=== PATIENT | female | born 1935 | race Caucasian/White ===

== ENCOUNTER 2016-05-14 18:38 | Emergency (ER) | payer MEDICARE, OTHER ==
[~2016-05-14] VITALS: Ht 160 cm; Wt 83.6 kg
[~2016-05-14 18:38] MED LIST: ADLT ASA LOW81 MG PO; ATENOLOL50 MG PO; B-121000 MC1 PO; CALTRATE 600 PO; CO Q 1030 MG PO; ENDUR-ACIN500 MG PO; GLUCOSAMINE500 M1 PO; LASIX40 MG PO; LEVOTHYROXIN100 MC1 PO; LIPITOR20 MG PO; MSM1000 MG PO; NADOLOL20 MG PO; SINEMET 25/1001 TA1 PO
[2016-05-14 20:26] LABS: HEMATOCRIT 36.9 % (37.0-47.0); HEMOGLOBIN 12.6 g/dl (12.0-16.0); IMMATURE GRANULOCYTES 0.5 % (0.0-1.0); MEAN CELL VOLUME 96.3 fL CALC (80.0-100.0); MEAN CORPUSCULAR HGB 32.9 pG CALC (26.0-32.0); MEAN CORPUSCULAR HGB CONC 34.1 g/L CALC (32.0-36.0); NEUT# 2.4 thou/uL (2.00-7.15); RED BLOOD COUNT 3.83 mill/uL (4.20-5.60); RED CELL DISTRI WIDTH 12.6 % (11.5-15.5)
[2016-05-14 20:37] LABS: ACT PARTIAL THROMBO TIME 30.8 SECONDS (20.0-32.5); PROTHROMBIN TIME 10.4 SECONDS (9.0-12.5)
[2016-05-14 20:38] LABS: ALBUMIN 3.8 g/dL (3.2-5.0); ALKALINE PHOSPHATASE 94 u/l (38-126); ANION GAP 15 (6-22 (CALC)); BILIRUBIN, TOTAL 0.4 mg/dL (0.0-1.4); BUN 24 mg/dL (8-23); BUN/CREATININE RATIO 23 (12-20 (CALC)); CALCIUM 9.2 mg/dL (8.4-10.2); CARBON DIOXIDE 29 mmol/l (22-30); CHLORIDE 104 mmol/l (95-108); GFR 54 ML/MIN (>=60 (CALC)); GFR FOR AFR.AMER. > 60 ML/MIN (>=60 (CALC)); GLUCOSE 107 mg/dL (82-115); POTASSIUM 3.9 mmol/l (3.5-5.1); SGOT/AST 21 u/l (9-36); SGPT/ALT 17 u/l (11-66); SODIUM 143 mmol/l (137-146); TOTAL PROTEIN 6.9 g/dL (6.3-8.2)
[2016-05-14 20:40] LABS: INFLUENZA A NONE DETECTED (NONE DETECT); INFLUENZA B NONE DETECTED (NONE DETECT)
[2016-05-14] MEDS ORDERED: COLACE100 MG PO (20:51)
[2016-05-14] MEDS ORDERED: B121000 MCG PO (20:52)
[2016-05-14] MEDS ORDERED: TURMERIC CURCU500 MG PO (20:53)
[2016-05-15] MEDS ORDERED: CODEINE/GUAIFEN1 SOL PO (00:32)
[2016-05-15] MEDS ORDERED: CIPROFLOXACN500 MG PO (00:32)
[2016-05-15 00:55] VITALS: BP 146/84
== END 2016-05-15 00:55 | disposition home or self-care (01) ==
LOC: ED 18:38
PROVIDERS: Emergency Medicine
DX: J20.9 Acute bronchitis, unspecified (principal); I10 Essential (primary) hypertension; E05.90 Thyrotoxicosis, unspecified without thyrotoxic crisis or storm; G20 Parkinson's disease; M19.90 Unspecified osteoarthritis, unspecified site; R04.0 Epistaxis

== ENCOUNTER 2017-01-08 22:06 | Inpatient (IN) | payer MEDICARE, OTHER ==
[~2017-01-08] VITALS: Ht 160 cm; Wt 85.3 kg
[~2017-01-08 22:06] MED LIST changes: +B121000 MCG PO; +CIPROFLOXACN500 MG PO; +CODEINE/GUAIFEN1 SOL PO; +COLACE100 MG PO; +TURMERIC CURCU500 MG PO
[2017-01-08 23:17] LABS: HEMATOCRIT 41.7 % (37.0-47.0); HEMOGLOBIN 14.3 g/dl (12.0-16.0); IMMATURE GRANULOCYTES 0.5 % (0.0-1.0); MEAN CORPUSCULAR HGB CONC 34.3 g/L CALC (32.0-36.0); NEUT# 5.03 thou/uL (2.00-7.15); RED BLOOD COUNT 4.21 mill/uL (4.20-5.60); RED CELL DISTRI WIDTH 12.5 % (11.5-15.5)
[2017-01-08 23:19] LABS: URINE BILIRUBIN - DIPSTICK NEGATIVE (NEGATIVE); URINE BLOOD DIPSTICK MODERATE (NEGATIVE); URINE COLOR YELLOW; URINE GLUCOSE - DIPSTICK NEGATIVE (NEGATIVE); URINE KETONE TRACE mg/dL (NEGATIVE); URINE LEUK ESTERASE NEGATIVE (NEGATIVE); URINE NITRITE - DIPSTICK NEGATIVE (Negative); URINE PH 5.5 (4.5-8.0); URINE PROTEIN - DIPSTICK TRACE mg/dL (NEG-TRACE); URINE SPECIFIC GRAVITY 1.025; URINE UROBILINOGEN - DIPSTICK 0.2 E.U./dL (0.2)
[2017-01-08 23:28] LABS: URINE CLARITY CLEAR
[2017-01-08 23:38] LABS: ALBUMIN 4.5 g/dL (3.2-5.0); ALKALINE PHOSPHATASE 79 u/l (38-126); ANION GAP 15 (6-22 (CALC)); BILIRUBIN, TOTAL 0.7 mg/dL (0.0-1.4); BUN 30 mg/dL (8-23); BUN/CREATININE RATIO 27 (12-20 (CALC)); CALCIUM 9.4 mg/dL (8.4-10.2); CARBON DIOXIDE 28 mmol/l (22-30); CHLORIDE 103 mmol/l (95-108); CREATININE 1.1 mg/dL (0.5-1.0); GFR 48 ML/MIN (>=60 (CALC)); GFR FOR AFR.AMER. 58 ML/MIN (>=60 (CALC)); GLUCOSE 120 mg/dL (82-115); POTASSIUM 3.9 mmol/l (3.5-5.1); SGOT/AST 31 u/l (9-36); SGPT/ALT 33 u/l (11-66); SODIUM 142 mmol/l (137-146); TOTAL PROTEIN 7.7 g/dL (6.3-8.2)
[2017-01-08 23:39] LABS: URINE SQUAMOUS EPITHELIAL CELL FEW EPI/hpf (0-FEW); URINE WBC 0-2 WBC/hpf (0-5)
[2017-01-09 02:15] VITALS: BP 152/92
[2017-01-09 02:15] LABS: INFLUENZA A NONE DETECTED (NONE DETECT); INFLUENZA B NONE DETECTED (NONE DETECT)
[2017-01-09 02:20] VITALS: BP 152/92
[2017-01-09 05:38] LABS: ANION GAP 17 (6-22 (CALC)); BUN 25 mg/dL (8-23); BUN/CREATININE RATIO 29 (12-20 (CALC)); CALCIUM 8.9 mg/dL (8.4-10.2); CARBON DIOXIDE 24 mmol/l (22-30); CHLORIDE 106 mmol/l (95-108); CREATININE 0.9 mg/dL (0.5-1.0); GFR 60 ML/MIN (>=60 (CALC)); GFR FOR AFR.AMER. > 60 ML/MIN (>=60 (CALC)); GLUCOSE 160 mg/dL (82-115); POTASSIUM 3.6 mmol/l (3.5-5.1); SODIUM 143 mmol/l (137-146)
[2017-01-09 07:10] VITALS: BP 148/84
[2017-01-09] MEDS ORDERED: CARB/LEVO1 TA5 PO (10:05)
[2017-01-09] MEDS ORDERED: LASIX40 MG PO (10:24)
[2017-01-09 10:34] LABS: HEMATOCRIT 39.1 % (37.0-47.0); HEMOGLOBIN 13.3 g/dl (12.0-16.0); IMMATURE GRANULOCYTES 0.3 % (0.0-1.0); NEUT# 6.39 thou/uL (2.00-7.15); RED BLOOD COUNT 3.91 mill/uL (4.20-5.60); RED CELL DISTRI WIDTH 12.6 % (11.5-15.5)
[2017-01-09 10:41] LABS: CHOLESTEROL HDL RATIO 6.5 (<4.4 (CALC))
[2017-01-09 12:59] VITALS: BP 141/67
[2017-01-09 16:15] VITALS: BP 123/62
[2017-01-09 19:10] VITALS: BP 155/70
[2017-01-10 00:06] VITALS: BP 144/74
[2017-01-10 03:54] VITALS: BP 153/77
[2017-01-10 06:01] LABS: HEMATOCRIT 34.2 % (37.0-47.0); HEMOGLOBIN 11.6 g/dl (12.0-16.0); IMMATURE GRANULOCYTES 0.4 % (0.0-1.0); MEAN CORPUSCULAR HGB 33.9 pG CALC (26.0-32.0); MEAN CORPUSCULAR HGB CONC 33.9 g/L CALC (32.0-36.0); NEUT# 6.64 thou/uL (2.00-7.15); RED BLOOD COUNT 3.42 mill/uL (4.20-5.60); RED CELL DISTRI WIDTH 12.6 % (11.5-15.5)
[2017-01-10 06:20] LABS: ANION GAP 12 (6-22 (CALC)); BUN 28 mg/dL (8-23); BUN/CREATININE RATIO 33 (12-20 (CALC)); CALCIUM 8.7 mg/dL (8.4-10.2); CARBON DIOXIDE 25 mmol/l (22-30); CHLORIDE 110 mmol/l (95-108); CREATININE 0.9 mg/dL (0.5-1.0); GFR 60 ML/MIN (>=60 (CALC)); GFR FOR AFR.AMER. > 60 ML/MIN (>=60 (CALC)); GLUCOSE 125 mg/dL (82-115); MAGNESIUM 2.1 mg/dL (1.6-2.3); POTASSIUM 4.1 mmol/l (3.5-5.1); SODIUM 143 mmol/l (137-146)
[2017-01-10 07:41] VITALS: BP 155/75
[2017-01-10 11:36] VITALS: BP 144/73
[2017-01-10 15:20] VITALS: BP 141/86
[2017-01-10 18:52] VITALS: BP 162/70
[2017-01-11] VITALS (10 sets, daily range): BP systolic 145–199; BP diastolic 75–107
[2017-01-11 05:55] LABS: HEMOGLOBIN 12.3 g/dl (12.0-16.0); MEAN CELL VOLUME 99.2 fL CALC (80.0-100.0); MEAN CORPUSCULAR HGB 33.9 pG CALC (26.0-32.0); MEAN CORPUSCULAR HGB CONC 34.2 g/L CALC (32.0-36.0); RED BLOOD COUNT 3.63 mill/uL (4.20-5.60); RED CELL DISTRI WIDTH 12.5 % (11.5-15.5)
[2017-01-11 06:03] LABS: ANION GAP 13 (6-22 (CALC)); BUN 22 mg/dL (8-23); BUN/CREATININE RATIO 29 (12-20 (CALC)); CALCIUM 8.7 mg/dL (8.4-10.2); CARBON DIOXIDE 26 mmol/l (22-30); CHLORIDE 110 mmol/l (95-108); CREATININE 0.8 mg/dL (0.5-1.0); GFR > 60 ML/MIN (>=60 (CALC)); GFR FOR AFR.AMER. > 60 ML/MIN (>=60 (CALC)); GLUCOSE 120 mg/dL (82-115); MAGNESIUM 2.1 mg/dL (1.6-2.3); POTASSIUM 3.9 mmol/l (3.5-5.1); SODIUM 144 mmol/l (137-146)
[2017-01-12] VITALS (9 sets, daily range): BP systolic 140–195; BP diastolic 62–104
[2017-01-12 06:03] LABS: HEMATOCRIT 39.8 % (37.0-47.0); HEMOGLOBIN 13.7 g/dl (12.0-16.0); MEAN CELL VOLUME 97.8 fL CALC (80.0-100.0); MEAN CORPUSCULAR HGB 33.7 pG CALC (26.0-32.0); MEAN CORPUSCULAR HGB CONC 34.4 g/L CALC (32.0-36.0); RED BLOOD COUNT 4.07 mill/uL (4.20-5.60); RED CELL DISTRI WIDTH 12.5 % (11.5-15.5)
[2017-01-12 06:20] LABS: ANION GAP 12 (6-22 (CALC)); BUN 22 mg/dL (8-23); BUN/CREATININE RATIO 27 (12-20 (CALC)); CALCIUM 9.1 mg/dL (8.4-10.2); CARBON DIOXIDE 30 mmol/l (22-30); CHLORIDE 104 mmol/l (95-108); CREATININE 0.8 mg/dL (0.5-1.0); GFR > 60 ML/MIN (>=60 (CALC)); GFR FOR AFR.AMER. > 60 ML/MIN (>=60 (CALC)); GLUCOSE 126 mg/dL (82-115); POTASSIUM 3.7 mmol/l (3.5-5.1); SODIUM 143 mmol/l (137-146)
[2017-01-13] VITALS (7 sets, daily range): BP systolic 132–179; BP diastolic 71–98
[2017-01-13 05:42] LABS: HEMATOCRIT 41.3 % (37.0-47.0); HEMOGLOBIN 14.1 g/dl (12.0-16.0); MEAN CELL VOLUME 98.3 fL CALC (80.0-100.0); MEAN CORPUSCULAR HGB 33.6 pG CALC (26.0-32.0); MEAN CORPUSCULAR HGB CONC 34.1 g/L CALC (32.0-36.0); RED BLOOD COUNT 4.2 mill/uL (4.20-5.60); RED CELL DISTRI WIDTH 12.6 % (11.5-15.5)
[2017-01-13 05:49] LABS: ANION GAP 12 (6-22 (CALC)); BUN 29 mg/dL (8-23); BUN/CREATININE RATIO 34 (12-20 (CALC)); CALCIUM 9.1 mg/dL (8.4-10.2); CARBON DIOXIDE 30 mmol/l (22-30); CHLORIDE 105 mmol/l (95-108); CREATININE 0.8 mg/dL (0.5-1.0); GFR > 60 ML/MIN (>=60 (CALC)); GFR FOR AFR.AMER. > 60 ML/MIN (>=60 (CALC)); GLUCOSE 134 mg/dL (82-115); MAGNESIUM 2.3 mg/dL (1.6-2.3); POTASSIUM 3.8 mmol/l (3.5-5.1); SODIUM 143 mmol/l (137-146)
[2017-01-14] VITALS (9 sets, daily range): BP systolic 130–235; BP diastolic 60–107
[2017-01-14] MEDS ORDERED: NYSTATIN100000 UN1 TOP (14:11)
[2017-01-14] MEDS ORDERED: IPRATROPIU0.5 MG/3 M NEB (14:11)
[2017-01-14] MEDS ORDERED: ROBITUSSIN AC10 ML PO (14:11)
[2017-01-14] MEDS ORDERED: AMLODIPINE BESYL5 MG PO (14:11)
[2017-01-14] MEDS ORDERED: LOSARTAN POT50 MG PO (14:11)
[2017-01-14] MEDS ORDERED: PULMICORT0.5MG/2ML IN (14:11)
[2017-01-14] MEDS ORDERED: PEPCID20 MG PO (14:11)
[2017-01-14] MEDS ORDERED: ALPRAZOLAM0.25 MG PO (14:11)
[2017-01-14] MEDS ORDERED: PREDNISONE10 MG PO (14:11)
[2017-01-14] MEDS ORDERED: DOXYCYC MONO100 M2 PO (14:11)
[2017-01-15 04:00] VITALS: BP 139/90
[2017-01-15 05:19] LABS: HEMATOCRIT 38.8 % (37.0-47.0); HEMOGLOBIN 13.1 g/dl (12.0-16.0); IMMATURE GRANULOCYTES 3.7 % (0.0-1.0); MEAN CELL VOLUME 99.2 fL CALC (80.0-100.0); MEAN CORPUSCULAR HGB 33.5 pG CALC (26.0-32.0); MEAN CORPUSCULAR HGB CONC 33.8 g/L CALC (32.0-36.0); NEUT# 6.15 thou/uL (2.00-7.15); RED BLOOD COUNT 3.91 mill/uL (4.20-5.60); RED CELL DISTRI WIDTH 12.5 % (11.5-15.5)
[2017-01-15 05:35] LABS: ANION GAP 11 (6-22 (CALC)); BUN 32 mg/dL (8-23); BUN/CREATININE RATIO 43 (12-20 (CALC)); CALCIUM 8.8 mg/dL (8.4-10.2); CARBON DIOXIDE 30 mmol/l (22-30); CHLORIDE 105 mmol/l (95-108); CREATININE 0.8 mg/dL (0.5-1.0); GFR > 60 ML/MIN (>=60 (CALC)); GFR FOR AFR.AMER. > 60 ML/MIN (>=60 (CALC)); GLUCOSE 93 mg/dL (82-115); MAGNESIUM 2.3 mg/dL (1.6-2.3); POTASSIUM 3.8 mmol/l (3.5-5.1); SODIUM 142 mmol/l (137-146)
[2017-01-15 08:28] VITALS: BP 149/72
[2017-01-15 15:40] VITALS: BP 105/67
== END 2017-01-15 20:00 | DRG 190 ==
LOC: ED 22:06 → ED-I 01-09 01:05 → ED 01-09 01:24 → MS2 01-09 01:25
PROVIDERS: Emergency Medicine; Internal Medicine; Nurse Practitioner Family; ADMIT Internal Medicine; ATTEND Internal Medicine
DX: J44.1 Chronic obstructive pulmonary disease with (acute) exacerbation (principal); J18.9 Pneumonia, unspecified organism; N17.9 Acute kidney failure, unspecified; G20 Parkinson's disease; I16.0 Hypertensive urgency; I10 Essential (primary) hypertension; E86.0 Dehydration; N39.0 Urinary tract infection, site not specified; B37.49 Other urogenital candidiasis; J44.0 Chronic obstructive pulmonary disease with (acute) lower respiratory infection; E78.5 Hyperlipidemia, unspecified; M19.90 Unspecified osteoarthritis, unspecified site; N39.3 Stress incontinence (female) (male); E03.9 Hypothyroidism, unspecified; J20.9 Acute bronchitis, unspecified; R53.1 Weakness; Z87.891 Personal history of nicotine dependence; Z91.81 History of falling
CPT/HCPCS: J1650

== ENCOUNTER 2017-03-20 12:29 | Observation (INO) | payer MEDICARE, OTHER ==
[~2017-03-20] VITALS: Ht 160 cm; Wt 90.3 kg
[~2017-03-20 12:29] MED LIST changes: +ALPRAZOLAM0.25 MG PO; +AMLODIPINE BESYL5 MG PO; +CARB/LEVO1 TA5 PO; +DOXYCYC MONO100 M2 PO; +IPRATROPIU0.5 MG/3 M NEB; +LOSARTAN POT50 MG PO; +NYSTATIN100000 UN1 TOP; +PEPCID20 MG PO; +PREDNISONE10 MG PO; +PULMICORT0.5MG/2ML IN; +ROBITUSSIN AC10 ML PO
--- NOTE | 2017-03-20 12:30 | NUR ---
PT TO ROM 6 VIA EMS STRETCHER. AT BEDSIDE.
--- NOTE | 2017-03-20 12:45 | NUR ---
IV INITIATED, LABS AND BC X2 COLLECTED. PT STRAIGHT CATHED FOR URINE SAMPLE. RECTAL TEMP 99.5 AT THIS TIME. PER PT SHE THINKS GAVE HER IBUPROFEN FOR PAIN 1 HOUR PRIOR. PT REPORTS CHRONIC RIGHT SIDED NECK PAIN AT THIS TIME BUT DENIES ANY PAIN, SOB, COUGH/CONGESTION. PT REPORTS GENERAL WEAKNESS SINCE SHE WAS RELEASED FROM REHAB 5 DAYS PRIOR. PT WAS BEING TREATED FOR UTI AND PNEUMONIA WHILE ADMITTED THERE. PT IS CURRENTLY NOT ON ANY ANTIBIOTICS. PT AWARE OF PLAN OF CARE AND WAIT TIME. CALL PERRY WITHIN REACH, WILL CONTINUE TO MONITOR.
[2017-03-20 13:17] LABS: HEMATOCRIT 40.6 % (37.0-47.0); HEMOGLOBIN 13.5 g/dl (12.0-16.0); IMMATURE GRANULOCYTES 0.6 % (0.0-1.0); MEAN CORPUSCULAR HGB 34.3 pG CALC (26.0-32.0); MEAN CORPUSCULAR HGB CONC 33.3 g/L CALC (32.0-36.0); NEUT# 6.99 thou/uL (2.00-7.15); RED BLOOD COUNT 3.94 mill/uL (4.20-5.60); RED CELL DISTRI WIDTH 13.5 % (11.5-15.5)
[2017-03-20] MEDS ORDERED: ARTIF TEARS OD (13:17)
[2017-03-20] MEDS ORDERED: BUDESONID2 IN (13:17)
[2017-03-20 13:18] LABS: URINE BILIRUBIN - DIPSTICK NEGATIVE (NEGATIVE); URINE BLOOD DIPSTICK TRACE-INTACT (NEGATIVE); URINE COLOR YELLOW; URINE GLUCOSE - DIPSTICK NEGATIVE (NEGATIVE); URINE KETONE NEGATIVE (NEGATIVE); URINE LEUK ESTERASE NEGATIVE (NEGATIVE); URINE NITRITE - DIPSTICK NEGATIVE (Negative); URINE PH 5.5 (4.5-8.0); URINE PROTEIN - DIPSTICK TRACE mg/dL (NEG-TRACE); URINE SPECIFIC GRAVITY >=1.030; URINE UROBILINOGEN - DIPSTICK 0.2 E.U./dL (0.2)
[2017-03-20 13:22] LABS: URINE CLARITY CLEAR
[2017-03-20 13:25] LABS: ALBUMIN 4.4 g/dL (3.2-5.0); ALKALINE PHOSPHATASE 75 u/l (38-126); ANION GAP 16 (6-22 (CALC)); BILIRUBIN, TOTAL 0.9 mg/dL (0.0-1.4); BUN 22 mg/dL (8-23); BUN/CREATININE RATIO 20 (12-20 (CALC)); CARBON DIOXIDE 29 mmol/l (22-30); CHLORIDE 103 mmol/l (95-108); CREATININE 1.1 mg/dL (0.5-1.0); GFR 48 ML/MIN (>=60 (CALC)); GFR FOR AFR.AMER. 58 ML/MIN (>=60 (CALC)); INFLUENZA A NONE DETECTED (NONE DETECT); INFLUENZA B NONE DETECTED (NONE DETECT); LIPASE 113 u/l (23-300); POTASSIUM 4.3 mmol/l (3.5-5.1); SGOT/AST 40 u/l (9-36); SGPT/ALT 24 u/l (11-66); SODIUM 143 mmol/l (137-146); TOTAL PROTEIN 7.8 g/dL (6.3-8.2)
--- NOTE | 2017-03-20 13:30 | NUR ---
PT REQUESTING LUNCH TRAY AND WAS INFORMED OF RESULTS NEEDED TO RETURN BEFORE EATING. PT DENEIS ANY PAIN AT THIS TIME AND IS RESTING COMFORTABLY IN STRETCHER. CALL PERRY WITHIN REACH, WILL CONTINUE TO MONITOR.
--- NOTE | 2017-03-20 13:45 | NUR ---
TEMP RECHECK 98.9.
--- NOTE | 2017-03-20 14:15 | NUR ---
MD AT BEDSIDE TO DISCUSS RESULTS AND PLAN OF ADMISSION.
--- NOTE | 2017-03-20 14:40 | NUR ---
MS NURSE WILL CALL BACK FOR REPORT. PT RESTING COMFORTABLY IN STRETCHER, AT BEDSIDE. BOTH AWARE OF WAIT TIME. CALL PERRY WITHIN REACH.
--- NOTE | 2017-03-20 15:40 | NUR ---
REPORT CALLED TO DAKOTAH FIELD.
--- NOTE | 2017-03-20 16:00 | NUR ---
Admission Note Report Given to: TOOTIE Transported by: Wheelchair X Stretcher Transported with: X Nurse Transporter X Patent IV O2 Configuration Manager
[2017-03-20 16:05] VITALS: BP 139/72
--- NOTE | 2017-03-20 16:55 | NUR ---
REPORT RECEIVED FROM SUPA IN ED, PT ARRIVED ON UNIT VIA STRETCHER @ 1600, ALERT AND ORIENTED X3, TRANSFERRED TO BED WITH MAX ASSIST, IV ABT AND IVF INFUSING, ORIENTEAD TO ROOM AND CALL PERRY.
--- NOTE | 2017-03-20 17:17 | NUR ---
PT STATES SHE HAS BEEN AMBULATORY ATHOME AND WANTED TO USE BSC. STAFF TRIED TO ASSIST TO BSC BUT WAS UNABLE TO TRANSFER PT MOBILITY IS EXTREMELY POOR AND SHE COULD BARELY STAND, ASSISTED BACK TO BED AND OFFERED BED HENDRIX, WILL CONTINUE TO MONITOR.
--- NOTE | 2017-03-20 18:50 | NUR ---
RECEIVED CHANGE OF SHIFT REPORT FROM DAKOTAH FIELD. PATIENT SITTING UP IN BED AND HAVING SUPPER. NO APPARENT ACUTE DISTRESS OR DISCOMFORT NOTED AT THIS TIME. WILL CONTINUE TO MONITOR.
[2017-03-20 20:00] VITALS: BP 120/70
--- NOTE | 2017-03-20 21:00 | NUR ---
PATIENT GOT OOB, URINATED AND DEFECATED ON THE FLOOR. ASSISTED SHAG TRUCK DRIVER TO CLEAN PATIENT AND SETTLED BACK TO BED.
--- NOTE | 2017-03-21 | NUR ---
PATIENT RESTING WITH EYES CLOSED AND APPEARS TO BE ASLEEP. RESP EVEN AND NONLABORED. WILL CONTINUE TO MONITOR.
[2017-03-21 04:55] LABS: HEMATOCRIT 33.5 % (37.0-47.0); HEMOGLOBIN 11.3 g/dl (12.0-16.0); IMMATURE GRANULOCYTES 0.5 % (0.0-1.0); MEAN CELL VOLUME 103.4 fL CALC (80.0-100.0); MEAN CORPUSCULAR HGB 34.9 pG CALC (26.0-32.0); MEAN CORPUSCULAR HGB CONC 33.7 g/L CALC (32.0-36.0); NEUT# 3.35 thou/uL (2.00-7.15); RED BLOOD COUNT 3.24 mill/uL (4.20-5.60); RED CELL DISTRI WIDTH 13.6 % (11.5-15.5)
--- NOTE | 2017-03-21 05:00 | NUR ---
PATIENT AWAKE AND ASSISTED TO BEDPAN. VOIDED 200ML ASHLEY URINE.
[2017-03-21 05:09] LABS: ANION GAP 11 (6-22 (CALC)); BUN 19 mg/dL (8-23); BUN/CREATININE RATIO 20 (12-20 (CALC)); CARBON DIOXIDE 27 mmol/l (22-30); CHLORIDE 110 mmol/l (95-108); GFR 53 ML/MIN (>=60 (CALC)); GFR FOR AFR.AMER. > 60 ML/MIN (>=60 (CALC)); SODIUM 144 mmol/l (137-146)
--- NOTE | 2017-03-21 07:14 | NUR ---
SHIFT CHANGE REPORT FROM FRANCIS, BRY SLEEPING, BREATHING EVEN AND NON-LABORED, NO SIGN DISCOMFORT, BED ALARM IN PLACE, CALL PERRY IN REACH.
[2017-03-21 08:18] VITALS: BP 137/84
--- NOTE | 2017-03-21 09:01 | NUR ---
ASSISTED OOB TO BSC THEN TO RECLINER, MAX ASSIST OF 2 STAFF MEMBERS NEEDED, PT GETS ANXIOUS AT TIMES AND ATTEMPTS TO GET UP WITHOUT ASKING FOR HELP. BODY ALARM ON AND CALL PERRY IN REACH.
--- NOTE | 2017-03-21 10:53 | NUR ---
DR LOPEZ AND CHIOMA ALANIZ, PT C/O NECK PAIN, PLAN IS FOR REHAB ON D/C. SITTING UP IN RECLINER AT THIS TIME, CALL [place] IN REACH.
--- NOTE | 2017-03-21 12:54 | NUR ---
PT ASSISTED TO BSC AND ADVISED TO CALL FOR ASSIST WHEN FINISHED, SPOUSE VISITING ALSO, PT FOUND SITTING ON COMMODE WITH LID CLOSED, SPOUSE REPORTED HE HELPED HER WITH DANE-CARE AND SAT HER BACK ON COMMODE. BOTH ADVISED TO ALWAYS CALL STAFF TO ASSIST THEY BOTH ARE VERY WEAK AND UNSTEADY. STAFF ASSISTED PT BACK TO BED FOR AFTERNOON REST.
[2017-03-21] MEDS ORDERED: ALPRAZOLAM0.25 MG PO (13:28)
[2017-03-21] MEDS ORDERED: KEFLEX500 MG PO (13:29)
--- NOTE | 2017-03-21 14:34 | NUR ---
Spoke to pt for discharge med education. Explained cephalexin dosing schedule. Pt seemed confused. Repeated dosing schedule multiple times with emphasis on only taking 1 po q 12 h. Pt complained of neck pain and wants a new Rx for potassium chloride. Pt also wants her meds delivered. Pt had no further questions or concerns.
--- NOTE | 2017-03-21 15:59 | NUR ---
ASSISTED TO BSC AND BACK TO RECLINER, BODY ALARM IN PLACE, C/O RIGHT NECK PAIN, WARM COMPRESS APPLIED, CALL PERRY IN REACH.
[2017-03-21 16:03] VITALS: BP 108/57
--- NOTE | 2017-03-21 17:23 | NUR ---
REPORT CALLED TO FRITZ @ [facility], PT WILL LEAVE WHEN TRANSPORT COMES TO RECEIVE HER.
--- NOTE | 2017-03-21 17:35 | NUR ---
Discharge instructions given. Patient verbalizes understanding of same. Discharged in fair condition via Wheelchair to [facility] with *Other. All belongings sent with pt.
== END 2017-03-21 17:35 ==
LOC: ED 12:29 → ED-I 13:50 → ED 14:12 → MS2 14:13
PROVIDERS: Family Medicine; Nurse Practitioner Family; ADMIT Internal Medicine; ATTEND Internal Medicine
DX: N39.0 Urinary tract infection, site not specified (principal); N17.9 Acute kidney failure, unspecified; E86.0 Dehydration; I16.0 Hypertensive urgency; I12.9 Hypertensive chronic kidney disease with stage 1 through stage 4 chronic kidney disease, or unspecified chronic kidney disease; N18.3 Chronic kidney disease, stage 3 (moderate); E87.2 Acidosis; E03.9 Hypothyroidism, unspecified; E78.5 Hyperlipidemia, unspecified; M19.90 Unspecified osteoarthritis, unspecified site; G23.1 Progressive supranuclear ophthalmoplegia [Steele-Richardson-Olszewski]; M62.81 Muscle weakness (generalized); Z87.891 Personal history of nicotine dependence
CPT/HCPCS: G0378; J0692

== ENCOUNTER 2017-12-19 14:01 | Inpatient (IN) | payer MEDICARE, OTHER ==
[~2017-12-19] VITALS: Ht 160 cm; Wt 96.0 kg
[~2017-12-19 14:01] MED LIST changes: +ARTIF TEARS OD; +BUDESONID2 IN; +KEFLEX500 MG PO
--- NOTE | 2017-12-19 14:01 | NUR ---
PT TO ROOM 12 VIA EMS.
[2017-12-19 14:45] LABS: HEMATOCRIT 36.8 % (37.0-47.0); IMMATURE GRANULOCYTES 0.7 % (0.0-5.0); MEAN CELL VOLUME 102.5 fL CALC (80.0-100.0); MEAN CORPUSCULAR HGB 33.4 pG CALC (26.0-32.0); MEAN CORPUSCULAR HGB CONC 32.6 g/L CALC (32.0-36.0); NEUT# 10.5 thou/uL (2.00-7.15); RED BLOOD COUNT 3.59 mill/uL (4.20-5.60); RED CELL DISTRI WIDTH 13.2 % (11.5-15.5)
[2017-12-19 14:59] LABS: INFLUENZA A NONE DETECTED (NONE DETECT); INFLUENZA B NONE DETECTED (NONE DETECT)
--- NOTE | 2017-12-19 15:09 | NUR ---
ENVIRONMENTAL MEASURES IN PROGRESS FOR TEMP 100.8. AWAITING CT.
[2017-12-19] MEDS ORDERED: ESCITALOPRAM OX10 MG PO (15:16)
[2017-12-19 15:25] LABS: ALBUMIN 3.7 g/dL (3.2-5.0); ALKALINE PHOSPHATASE 81 u/l (38-126); ANION GAP 15 (6-22 (CALC)); BILIRUBIN, TOTAL 0.7 mg/dL (0.0-1.4); BUN 25 mg/dL (8-23); BUN/CREATININE RATIO 25 (12-20 (CALC)); CARBON DIOXIDE 25 mmol/l (22-30); CHLORIDE 103 mmol/l (95-108); GFR 53 ML/MIN (>=60 (CALC)); GFR FOR AFR.AMER. > 60 ML/MIN (>=60 (CALC)); POTASSIUM 4.4 mmol/l (3.5-5.1); SGOT/AST 20 u/l (9-36); SODIUM 139 mmol/l (137-146); TOTAL PROTEIN 7.1 g/dL (6.3-8.2)
--- NOTE | 2017-12-19 15:26 | NUR ---
PT RETURNED FROM CT. AWAITING TEST RESULTS. ELEVATED HOB. SPOUSE AT BEDSIDE.
--- NOTE | 2017-12-19 16:19 | NUR ---
IV ABT INFUSING. SECOND IV SITE OBTAINED RH. HOB ELEVATED. RESP EVEN NONLABORED
--- NOTE | 2017-12-19 16:56 | NUR ---
MD AT BEDSIDE DISCUSSING CLINICAL RESULTS W/PT AND SPOUSE
--- NOTE | 2017-12-19 17:44 | NUR ---
REPORT CALLED TO LAURENT. PT TO [facility]. ELEVATED HOB. IV SITE HEALTHY BILAT HAND. IV VANCO CONTINUES. SPOUSE ACCOMPANIED.
--- NOTE | 2017-12-19 17:51 | NUR ---
PT TRANSPORTED TO [facility] VIA STRETCHER ACCOMPIANED BY DAKOTAH GARCÍA AND SPOUSE. DISEASE INTERVENTION SPECIALIST WITH ASSISTANCE TRANSFERRED PT TO BED FROM STRETCHER. DR. JAIME IN TO SEE PT. PT A/O X3. PT HAS HX OF CATARACTS. SPEECH IS CLEAR, VOICE IS RASPY. EXTERNAL SOB BUT PT DENIES ANY SOB. PT HAS CONSTANT NONPRODUCTIVE COUGH. LUNGS SOUNDS COARSE. STRONG RADIAL AND PEDAL PULSES. BOWEL SOUNDS HYPOACTIVE. PT HAS GENERALIZED SWELLING +1. ALSO GENERALIZED WEAKNESS. PT INNER THIGHS AND COCCYX IS SLIGHTLY REDDENED. #20 LH EMS SITE D5 1/2 NS @75. SITE APPEARS HEALTHY. #20 RH SL. FLUSHED AND PATENT. SITE APPEARS HEALTHY. PT COMPLAINS OF PAIN TO IV SITE. SPOUSE AT BEDSIDE. POC DISCUSSED. SAFETY PRECAUTIONS IN PLACE. HOB ELEVATED FOR COMFORT. CALL LIGHT IN REACH. WILL CONTINUE TO MONITOR
--- NOTE | 2017-12-19 19:00 | NUR ---
BEDSIDE REPORT RECEIVED FROM KASSIE MANCILLA. PT SITTING UP IN BED WITH EYES CLOSED; ALERT AND ORIENTED. SPEAKING VERY QUIETLY WITH RASPY VOICE AND COUGHING. DENIES PAIN. RESPIRATIONS EVEN AND UNLABORED ON ROOM AIR. PLAN OF CARE DISCUSSED. PT ENCOURAGED TO VERABLIZE CONCERNS. STATES UNDERSTANDING. SAFETY MEASURES IN PLACE. CALL LIGHT WITHIN REACH.
[2017-12-19 19:09] VITALS: BP 151/82
[2017-12-19 23:42] VITALS: BP 108/62
--- NOTE | 2017-12-19 23:58 | NUR ---
PT RESPOSITIONED AND HYGIENE PROVIDED; INCONTINENT OF URINE. VERY MILD REDNESS TO BUTTOCK; BARRIER CREAM APPLIED. ZOSYN INFUSING WITHOUT DIFFICULTY; IV SITE TO EMS APPEARS HEALTHY. IV SITE TO D/C'D PER PT REQUEST C/O PAIN. OXYGEN SATURATION 89% WHILE ASLEEP ON ROOM AIR; OXYGEN APPLIED PER ORDERS VIA NC AT 2L. PT REMAINS A TOTAL ASSIST. NO REQUESTS OR CONCERNS AT THIS TIME. CONTINUES TO DENY PAIN. SAFETY MEASURES IN PLACE. CALL LIGHT WITHIN REACH.
--- NOTE | 2017-12-20 04:09 | NUR ---
NO ACUTE CHANGES IN CONDITION THROUGHOUT THE NIGHT. PT DOES NOT USE CALL LIGHT; NEEDS ARE ANTICIPATED BY STAFF. DENIES PAIN. RESPIRATIONS EVEN WITH AUDIBLE CONGESTION; PT CONTINUES WITH NON PRODUCTIVE COUGH. Q2 TURN. HAS HAD INCONTINENT URINE ALMOST EVERY TIME FOR REPOSITIONING; HYGEINE PROVIDED; SKIN INTACT. CALL LIGHT WITHIN REACH.
[2017-12-20 04:22] VITALS: BP 101/57
[2017-12-20 05:52] LABS: HEMATOCRIT 32.8 % (37.0-47.0); HEMOGLOBIN 10.8 g/dl (12.0-16.0); IMMATURE GRANULOCYTES 0.6 % (0.0-5.0); MEAN CELL VOLUME 102.8 fL CALC (80.0-100.0); MEAN CORPUSCULAR HGB 33.9 pG CALC (26.0-32.0); MEAN CORPUSCULAR HGB CONC 32.9 g/L CALC (32.0-36.0); NEUT# 6.46 thou/uL (2.00-7.15); RED BLOOD COUNT 3.19 mill/uL (4.20-5.60); RED CELL DISTRI WIDTH 13.2 % (11.5-15.5)
[2017-12-20 06:08] LABS: ALKALINE PHOSPHATASE 52 u/l (38-126); ANION GAP 11 (6-22 (CALC)); BILIRUBIN, TOTAL 0.4 mg/dL (0.0-1.4); BUN 20 mg/dL (8-23); BUN/CREATININE RATIO 20 (12-20 (CALC)); CARBON DIOXIDE 29 mmol/l (22-30); CHLORIDE 104 mmol/l (95-108); GFR 53 ML/MIN (>=60 (CALC)); GFR FOR AFR.AMER. > 60 ML/MIN (>=60 (CALC)); POTASSIUM 3.8 mmol/l (3.5-5.1); SGOT/AST 17 u/l (9-36); SODIUM 140 mmol/l (137-146)
[2017-12-20 06:19] LABS: ALBUMIN 2.8 g/dL (3.2-5.0); TOTAL PROTEIN 5.6 g/dL (6.3-8.2)
--- NOTE | 2017-12-20 07:00 | NUR ---
SHIFT CHANGE REPORT FROM BRENDAN, PT SLEEPING, ORAL BREATHING HEAVILY BUT EVEN AND NON-LABORED, 02 @ 2L VIA NC IN PLACE, BED IN LOWEST POSITION AND CALL PERRY IN REACH.
[2017-12-20 08:09] VITALS: BP 141/62
--- NOTE | 2017-12-20 11:12 | NUR ---
Mrs. Rosalie Shafer is an 82-year old female who was admitted via the ER on 12/19/17 from a local rehab center with complaints of cough, weakness and fever. She was evaluated and diagnosed with aspiration pneumonia and UTI. Prior medical history indicated Parkinson's Disease, Hypothyroidism, Hypertension, Progressive Supranuclear Palsy, Physical/Muscle Deconditioning, Dysuria. Order received for Swallow Consult 12/20/17. Digital Analyst entered room with Patient was in bed at 45 degree angle with , Iván at bedside. described an increased frequency of Patient coughing during meals and persistent weakness and wheezing. Patient was alert and oriented to person, place and reason for hospital admission. She knew month, year and current president. Oral mechanism examination revealed the patient to be edentulous with dentures at bedside. Labial movement slow and diminished, but adequate lipseal for liquids. Lingual fissures noted with lingual range of movement within normal limits without tremor. Soft palate appeared to be wnl. Patient was given 1 teaspoon of orange juice. Patient noted to have three sequential audible swallows to clear juice. Coughing commenced ~20 seconds post swallow. Patient continued to have non productive cough for >10 minutes. verbally cueing patient to cough and spit. No other textures attempted due to Patient's status following initial trial. Patient's voice gravelly, often unintelligible. IMPRESSIONS: Patient demonstrates signs and symptoms of oral/pharyngeal stage dysphagia with possible pooling and aspiration. Patient is currently unsafe for oral intake. RECOMMENDATIONS: Mrs. Shafer should remain NPO. MBSS ordered by Dr. Gentile to be completed STAT. Respiration therapy as determined by physician. Thank you for this referral. Emilee Del Toro M.A., CCC-ASSEMBLER MOLDED FRAMES
--- NOTE | 2017-12-20 11:58 | NUR ---
PT IN LEFT SIDE-LYING POSITION AT THIS TIME HOLDING IV CATHETER IN R. HAND WITH TIP INTACT AND SITE BLEEDING, PRESSURE APPLIED, NEW SITE STARTED.
--- NOTE | 2017-12-20 12:00 | NUR ---
COUGHING AND HAVING DIFFICULT TIME EXPECTORATING, MEDICAL TEAM ORDERED SUCTIONING, SUCTION DONE, PT FEELS SOMEWHAT BETTER, SPOUSE AT BEDSIDE, WILL CONTINUE TO MONITOR.
[2017-12-20 14:27] VITALS: BP 156/83
[2017-12-20 15:08] LABS: URINE BILIRUBIN - DIPSTICK NEGATIVE (NEGATIVE); URINE BLOOD DIPSTICK SMALL (NEGATIVE); URINE COLOR YELLOW; URINE GLUCOSE - DIPSTICK NEGATIVE (NEGATIVE); URINE KETONE NEGATIVE (NEGATIVE); URINE LEUK ESTERASE NEGATIVE (NEGATIVE); URINE NITRITE - DIPSTICK NEGATIVE (Negative); URINE PH 6.5 (4.5-8.0); URINE PROTEIN - DIPSTICK NEGATIVE (NEG-TRACE); URINE UROBILINOGEN - DIPSTICK 0.2 E.U./dL (0.2)
[2017-12-20 15:09] LABS: URINE CLARITY CLEAR; URINE SQUAMOUS EPITHELIAL CELL FEW EPI/hpf (0-FEW)
[2017-12-20 15:25] VITALS: BP 145/75
--- NOTE | 2017-12-20 15:56 | NUR ---
Spoke with patient about medications. Pt had no questions or concerns about current therapy.
--- NOTE | 2017-12-20 16:00 | NUR ---
ALERT AND RESTING IN BED, VOICE REMAINS COARSE/RASPY, BREATHING IMIPROVED, ALL NEEDS ADDRESSED, WILL CONTINUE TO MONITOR.
[2017-12-20 19:00] VITALS: BP 125/70
--- NOTE | 2017-12-20 19:50 | NUR ---
PATIENT RESTING WITH EYES CLOSED. RESP EVEN AND UNLABORED. NO S/S OF DISTRESS NOTED. PLAN OF CARE DISCUSSED, FALL PRECAUTIONS IN PLACE, AND PATIENT INFORMED TO CALL WITH ANY QUESTIONS OR CONCERNS.
--- NOTE | 2017-12-21 00:31 | NUR ---
PATIENT RESTING IN BED WITH EYES CLOSED. RESP EVEN AND UNLABORED. NON-PRODUCTIVE COUGH PRESENT. NO S/S OF DISTRESS NOTED.
--- NOTE | 2017-12-21 04:06 | NUR ---
PATIENT AWAKE AND WATCHING TV IN BED. C/O OF A COUGH, PT WAS OFFERED ORAL SUCTION FOR THE SUPTUM THAT WAS BROUGHT UP.
[2017-12-21 04:22] VITALS: BP 124/60
[2017-12-21 05:53] LABS: HEMATOCRIT 33.3 % (37.0-47.0); HEMOGLOBIN 11.2 g/dl (12.0-16.0); IMMATURE GRANULOCYTES 0.8 % (0.0-5.0); MEAN CORPUSCULAR HGB 33.6 pG CALC (26.0-32.0); MEAN CORPUSCULAR HGB CONC 33.6 g/L CALC (32.0-36.0); NEUT# 7.3 thou/uL (2.00-7.15); RED BLOOD COUNT 3.33 mill/uL (4.20-5.60); RED CELL DISTRI WIDTH 12.8 % (11.5-15.5)
[2017-12-21 06:11] LABS: ALBUMIN 3.1 g/dL (3.2-5.0); ALKALINE PHOSPHATASE 55 u/l (38-126); ANION GAP 11 (6-22 (CALC)); BILIRUBIN, TOTAL 0.3 mg/dL (0.0-1.4); BUN 15 mg/dL (8-23); BUN/CREATININE RATIO 19 (12-20 (CALC)); CARBON DIOXIDE 27 mmol/l (22-30); CHLORIDE 106 mmol/l (95-108); CREATININE 0.8 mg/dL (0.5-1.0); GFR > 60 ML/MIN (>=60 (CALC)); GFR FOR AFR.AMER. > 60 ML/MIN (>=60 (CALC)); MAGNESIUM 2.1 mg/dL (1.6-2.3); POTASSIUM 3.8 mmol/l (3.5-5.1); SGOT/AST 19 u/l (9-36); SODIUM 141 mmol/l (137-146); TOTAL PROTEIN 6.1 g/dL (6.3-8.2)
--- NOTE | 2017-12-21 07:50 | NUR ---
SHIFT CHANGE REPORT FROM WISTER, PT AWAKE ALERT AND ORIENTED, SPEECH AND GENERALISED CONDITION MUCH IMPROCED SINCE YESTERDAY, RASPINESS AND COUGHING IMPROVED, ASSISTED WITH BOWEL ELIMINATION, IVF INFUSING, ALL NEEDS ADDRESSED, CALL PERRY IN REACH.
[2017-12-21 08:12] VITALS: BP 141/68
--- NOTE | 2017-12-21 11:11 | NUR ---
PRELIMINARY BLOOD CULTURE RESULTS CALLED TO PEDRO BEDOLLA AT 0716 AM. ORDER FOR VANCOMYCIN PHARMACY TO DOSE RECEIVED.
--- NOTE | 2017-12-21 12:17 | NUR ---
C/O BEING HUNGRY AND ASKING FOR EGGS & LORA, INFORMED OF NPO STATUS AND ORDERED PROCEDURE, NEEDS REMINDERS, SPOUSE AT BEDSIDE ASKING WHETHER HE COULD GIVE PT LOSANGES BUT ADVISED THAT WOULD NOT BE A GOOD IDEA IT MAY CAUSE ASPIRATION, HE STATED UNDERSTANDING. WILL CONTINUE TO MONITOR.
--- NOTE | 2017-12-21 13:27 | NUR ---
S: HOSSEIN MOREJON is a 82 F who presents with GRAM + COCCI BLOOD CULTURE. She has a history of UNABLE TO SWALLOW ASPIRATED FOOD INTO LUNGS . All medications in patient's chart were reviewed. O: VS: BP , P, RR,T W <96 kg>, HT<63IN>, Scr=<0.8>,CrCl= <49 ml/min> A: Blood culture <is pending/show GRAM (+) COCCI> which is sensitive to <N/A>. P: Patient is on VANCO, ZOSYN. Vancomycin ordered for pharmacy to dose. Start Vancomycin 1 GRAM, IV Q12H. Vancomycin trough is drawn before the 4th dose on 12/22/17 193 Vancomycin goal trough is between <15-20 mcg/ml>. Pharmacy will follow and or advise on antibiotics use as needed. VANNA ARIAS PHARMD
[2017-12-21 14:15] VITALS: BP 153/83
[2017-12-21 15:21] LABS: URINE BILIRUBIN - DIPSTICK NEGATIVE (NEGATIVE); URINE BLOOD DIPSTICK LARGE (NEGATIVE); URINE CLARITY CLEAR; URINE COLOR YELLOW; URINE GLUCOSE - DIPSTICK NEGATIVE (NEGATIVE); URINE KETONE NEGATIVE (NEGATIVE); URINE LEUK ESTERASE NEGATIVE (NEGATIVE); URINE NITRITE - DIPSTICK NEGATIVE (Negative); URINE PROTEIN - DIPSTICK 100 mg/dL (NEG-TRACE); URINE SPECIFIC GRAVITY 1.025; URINE UROBILINOGEN - DIPSTICK 0.2 E.U./dL (0.2)
--- NOTE | 2017-12-21 15:26 | NUR ---
PT ALERT AND ORIENTED, NEEDS MINIMAL REMINDERS AT TIMES, ASSISTED ON BEDPAN COUPLE TIMES AND HAD 3 EPISODES INCONTINENCE OF STOOL, ALL NEEDS ADDRESSED, CALL PERRY IN REACH.
[2017-12-21 15:31] LABS: URINE RBC TNTC RBC/hpf (0-5); URINE SQUAMOUS EPITHELIAL CELL FEW EPI/hpf (0-FEW)
[2017-12-21 16:20] VITALS: BP 146/81
--- NOTE | 2017-12-21 16:29 | NUR ---
SLIGHTLY RESTLESS AT THIS TIME, RELAXED WITH ANOTHER PERSON IN ROOM WITH WHOM SHE CAN CONVERSE, NEEDS ADDRESSED, WILL CONTINUE TO MONITOR.
[2017-12-21 17:47] LABS: CHOLESTEROL HDL RATIO 4.1 (<4.4 (CALC))
[2017-12-21 19:31] VITALS: BP 136/70
--- NOTE | 2017-12-21 20:00 | NUR ---
RECIEVED REPORT FROM OFFGOING NURSE. PT PLEASANTLY CONFUSED. NO PAIN NOTED. IV PATENT. NO SOB NOTED.PT CONTINUES TO BE NPO. CLARK PATENT URINE CLEAR. BED IN LOWEST POSTION. CALL LIGHT IN REACH.
[2017-12-22 00:30] VITALS: BP 148/74
[2017-12-22 05:02] VITALS: BP 153/80
[2017-12-22 06:06] LABS: HEMATOCRIT 32.8 % (37.0-47.0); HEMOGLOBIN 10.9 g/dl (12.0-16.0); MEAN CELL VOLUME 100.3 fL CALC (80.0-100.0); MEAN CORPUSCULAR HGB 33.3 pG CALC (26.0-32.0); MEAN CORPUSCULAR HGB CONC 33.2 g/L CALC (32.0-36.0); RED BLOOD COUNT 3.27 mill/uL (4.20-5.60); RED CELL DISTRI WIDTH 13.1 % (11.5-15.5)
[2017-12-22 06:36] LABS: ANION GAP 10 (6-22 (CALC)); BUN 15 mg/dL (8-23); BUN/CREATININE RATIO 18 (12-20 (CALC)); CARBON DIOXIDE 25 mmol/l (22-30); CHLORIDE 111 mmol/l (95-108); CREATININE 0.8 mg/dL (0.5-1.0); GFR > 60 ML/MIN (>=60 (CALC)); GFR FOR AFR.AMER. > 60 ML/MIN (>=60 (CALC)); MAGNESIUM 2.2 mg/dL (1.6-2.3); POTASSIUM 3.4 mmol/l (3.5-5.1); SODIUM 143 mmol/l (137-146)
--- NOTE | 2017-12-22 07:42 | NUR ---
SHIFT CHANGE REPORT FROM LOAN, PT AWAKE ALERT, TALKATIVE, DENIED PAIN/DISCOMFORT, IVF INFUSING, AM CARE BEING DONE BY SEAMER ADN RN ASSISTING, BED IN LOWEST POSITION AND CALL PERRY IN REACH.
[2017-12-22 08:11] VITALS: BP 159/73
[2017-12-22 11:05] VITALS: BP 158/93
--- NOTE | 2017-12-22 11:53 | NUR ---
SPOUSE VISITING AT THIS TIME, CAME TO NURSES STATION TO INQUIRE IF HE CAN GIVE PT LOSANGES, ADVISED OF NPO ORDER AND ASPIRATION RISKS, ON ASSESSMENT PT ALREADY HAD LOSANGES IN MOUTH SUCKING ON, MEDICAL STAFF ARRIVED IN ROOM FOR ROUNDING AND WAS INFORMED OF EVENT, SENIOR CORPORATE RECRUITER SAID HARD CANDY WAS OK AND PT WAS LEFT TO CONTINUE SUCKING SHE STATED IT WAS SOOTHING TO HER THROAT. WILL CONTINUE TO MONITOR.
[2017-12-22 15:39] VITALS: BP 138/65
--- NOTE | 2017-12-22 16:00 | NUR ---
COUGHING PERSISTS BUT IMPROVED, FIDGETTY, DOES WELL WITH COMPANY IN ROOM AND STAFF SITS AND CONVERSES WITH HER OCCASIONALLY, WILL CONTINUE TO MONITOR.
[2017-12-22 19:15] VITALS: BP 161/77
--- NOTE | 2017-12-22 20:29 | NUR ---
PT RESTING IN BED. REPORT RECIEVED FROM OFFGOING NURSE. DENIES PAIN. PT REDIRECTED ABOUT VOIDIN. IV REINSERTED IN R HAND. EXPLAINED LAB WORK TO BE COMPLETED BEFORE VANCOMYCIN IS TO BE HUNG. PT VOICED UNDERSTANDING. BED IN OWEST POSITION WITH CALL LIGHT IN REACH.
--- NOTE | 2017-12-22 21:00 | NUR ---
PT EDUCATED ON DIET AFTER ENTERING ROOM AND PT DRINKING WATER OUT OF A CUP FROM SPONGES USED TO KEPT MOUTH MOIST. PT VOICED UNDERSTANDING.
[2017-12-23] VITALS (7 sets, daily range): BP systolic 99–200; BP diastolic 62–92
--- NOTE | 2017-12-23 00:38 | NUR ---
PT RESTING IN BED WITH EYES CLOSED. IV ABX ADMINISTERED. VANCO TROUGH WITHIN NORMAL WNL. NO ADVERSE REACTION. WILL CONTINUE TO MONITOR.
--- NOTE | 2017-12-23 03:23 | NUR ---
PT RESTING IN BED EYES CLOSED. ABX ADMINISTERED WITH NO ADVERSE REACTION. BED IN LOWEST POSITION. CALL LIGHT WITHIN REACH.
[2017-12-23 05:33] LABS: HEMATOCRIT 33.6 % (37.0-47.0); HEMOGLOBIN 11.1 g/dl (12.0-16.0); IMMATURE GRANULOCYTES 4.3 % (0.0-5.0); MEAN CELL VOLUME 101.8 fL CALC (80.0-100.0); MEAN CORPUSCULAR HGB 33.6 pG CALC (26.0-32.0); NEUT# 7.85 thou/uL (2.00-7.15); RED BLOOD COUNT 3.3 mill/uL (4.20-5.60); RED CELL DISTRI WIDTH 13.2 % (11.5-15.5)
[2017-12-23 05:48] LABS: ALBUMIN 3.3 g/dL (3.2-5.0); ALKALINE PHOSPHATASE 47 u/l (38-126); ANION GAP 8 (6-22 (CALC)); BILIRUBIN, TOTAL 0.2 mg/dL (0.0-1.4); BUN 19 mg/dL (8-23); BUN/CREATININE RATIO 19 (12-20 (CALC)); CARBON DIOXIDE 25 mmol/l (22-30); CHLORIDE 115 mmol/l (95-108); GFR 53 ML/MIN (>=60 (CALC)); GFR FOR AFR.AMER. > 60 ML/MIN (>=60 (CALC)); MAGNESIUM 2.2 mg/dL (1.6-2.3); POTASSIUM 3.2 mmol/l (3.5-5.1); SGOT/AST 30 u/l (9-36); SODIUM 145 mmol/l (137-146); TOTAL PROTEIN 6.3 g/dL (6.3-8.2)
--- NOTE | 2017-12-23 06:59 | NUR ---
MADE AWARE THAT PT HAS ONLU HAD 150 OUTPUT AND INPUT IS 1167 ALSO POTASSIUM 3.2. NO ORDERS RECIEVED. STATED HE WILL REVIEW.
--- NOTE | 2017-12-23 07:40 | NUR ---
ASSESSMENT IS COMPLETED: PT IS RELAXING IN BED, EXPLAINED THAT SHE HAD A SHOT FOR HER SUGAR YESTERDAY. BREATH SOUNDS ARE WHEEZING AND DIMINISHED.HR IS REG, PULSES ARE STRONG WITH A TRACE OF EDEMA NOTED. ABD IS SOFT WITH ACTIVE BS. TELE MONITOR IN PLACE. IV SITE IS FREE FROM REDNESS OR EDEMA.
--- NOTE | 2017-12-23 10:24 | NUR ---
PT HAD A LARGE WATERRY STOOL. WILL ATTEMPT TO GET A SAMPLE
--- NOTE | 2017-12-23 11:37 | NUR ---
SWALLOW STUDY ON HOLD UNTIL RADIOLOGIST IS SPOKEN WITH.
--- NOTE | 2017-12-23 12:00 | NUR ---
PT IS RELAXING IN BED WITH NO DISTRESS NOTED IV SITE IS FREE FROM REDNESS OR EDEMA. CONTINUE TO OBSERVE AND MONITOR.
[2017-12-23 13:31] LABS: C. DIFFICILE TOXIN A&B NEGATIVE (NEGATIVE)
--- NOTE | 2017-12-23 13:32 | NUR ---
S: HOSSEIN MOREJON is a 82 F who presents with aspiration pneumonia. She has a history of arthritis, chicken pox/herpes, and parkinson's. All medications in patient's chart were reviewed. O: VS: BP 158/79, P 81, RR 18, T 99 W 96kg, HT 5' 3", Scr= 1.0, CrCl= 49.47 mL/min A: Blood culture shows Staphylococcus capitis which is sensitive to ciprofloxacin and vancomycin . Patient is on Vancomycin 1gm IV Q12H . Vancomycin ordered for pharmacy to dose Continue Vancomycin 1gm IV Q12H. Vancomycin trough is drawn on 12/26/17 at 0730. Vancomycin goal trough is between <15-20 mcg/ml>. Pharmacy will follow and or advise on antibiotics use as needed.
--- NOTE | 2017-12-23 13:45 | NUR ---
PT WENT TO XRAY TO HAVE A BARIUM SWALLOW STUDY COMPLETED: VIA STRETCHER WITH STAFF.
--- NOTE | 2017-12-23 14:15 | NUR ---
PT RETURNED FROM HAVING STUDY COMPLETED: VIA STRETCHER. TOLERATED WELL. IV SITE IS FREE FROM REDNESS OR EDEMA.
--- NOTE | 2017-12-23 15:16 | NUR ---
Spoke with medical staff. The patient has been non ambulatory for the past 3 years. She is not appropriate for inpatient therapy at this time. She will need contracture management
--- NOTE | 2017-12-23 16:00 | NUR ---
PT IS IN BED VISITING WITH SPOUSE AND DR. HAS BEEN CALLED RE: NEEDING A PEG TUBE. WILL DO TOMORROW. PT WILL CONTINUE TO BE NPO STATUS AT THIS TIME. IV SITE IS FREE FROM REDNESS OR EDEMA.
--- NOTE | 2017-12-23 16:32 | NUR ---
PT IS INCONTINENT OF STOOL. CONTINUES TO COUGH AND HAS A RASPY VOICE. EXPLAINED TO PT SHE NEEDS TO RELAX HER VOICE.
--- NOTE | 2017-12-23 19:30 | NUR ---
PATIENT RESTING IN BED WITH HOB ELEVATED. AWAKE ALERT AND ORIENTEDX3 AND STATES THAT SHE WANTS TO GO TO SLEEP. O2 VIA NASAL CANNULA IN PLACE AT 2LPM. CLARK PATENT AND DRAINING YELLOW URINE. IV SITE TO RIGHT HAND INTACT WITH IVF D51/2NS PATENT AND INFUSING AT 125CC/HR. SITE APPEARS HEALTHY AT THIS TIME. PATIENT IS CURRENTLY NPO. PINK TOOTHETTE SPONGES BEING USE OF ORAL HYGEINE. SAFETY PRECAUTIONS REINFORCED. CALL LIGHT IN REACH. WILL CONT TO MONITOR.
--- NOTE | 2017-12-23 22:50 | NUR ---
NEB TX NOT GIVEN. PT ASLEEP AND IN NO DISTRESS. PT TOLD RN SHE JUST WANTED TO REST.
[2017-12-24] VITALS (8 sets, daily range): BP systolic 149–179; BP diastolic 79–98
--- NOTE | 2017-12-24 00:01 | NUR ---
PATIENT RESTING IN BED WITH O2 VIA NASAL CANNULA IN PLACE. TELE MONITOR IN PLACE. CLARK CATH PATENT AND DRAINING YELLOW URINE. ZOSYN HUNG ORDERED VIA RIGHT HAND SITE. PATIENT WITH PERSISTANT NON-PRODUCTIVE COUGH. CALL LIGHT IN REACH. HOB ELEVATED. CALL LIGHT IN REACH. WILL CONT TO MONITOR.
--- NOTE | 2017-12-24 04:44 | NUR ---
PATIENT RESTING IN BED. AWAKE ALERT AND ORIENTEDX3. AM LABS DRAWN ORDERED. O2 VIA NASAL CANNULA IN PLACE AT 2LPM. TELE MONITORING DEVICE IN PLACE. IVF PATENT AND INFUSING VIA RIGHT HAND SITE. SITE REMAINS HEALTHY AT THIS TIME. IV SITE TO RAC REDRESSED-SITE REMAINS HEALTHY WITH GOOD BLOOD RETURN. CLARK CATH PATENT AND DRAINED FOR 1050CC OF YWELLOW URINE. PATIENT INCONT OF MODERATE AMT OF LOOSE BROWN STOOL. PERINEAL AREA IS EXCORIATED. PERINEAL AND CLARK CATH CARE DONE AND BARRIER CREAM APPLIED TO AFFECTED AREAS. PATIENT WITH PERSISTANT NON-PRODUCTIVE COUGH. ORAL HYGEINE WAS DONE USING PINK TOOTHETTE SPONGES. PATIENT REPOSITIONED AND HOB ELEVATED. CALL LIGHT IN REACH. WILL CONT TO MONITOR.
[2017-12-24 05:22] LABS: HEMATOCRIT 33.4 % (37.0-47.0); HEMOGLOBIN 11.1 g/dl (12.0-16.0); MEAN CORPUSCULAR HGB 33.2 pG CALC (26.0-32.0); MEAN CORPUSCULAR HGB CONC 33.2 g/L CALC (32.0-36.0); RED BLOOD COUNT 3.34 mill/uL (4.20-5.60); RED CELL DISTRI WIDTH 13.1 % (11.5-15.5)
[2017-12-24 05:25] LABS: ANION GAP 8 (6-22 (CALC)); BUN 16 mg/dL (8-23); BUN/CREATININE RATIO 19 (12-20 (CALC)); CARBON DIOXIDE 26 mmol/l (22-30); CHLORIDE 113 mmol/l (95-108); CREATININE 0.9 mg/dL (0.5-1.0); GFR 60 ML/MIN (>=60 (CALC)); GFR FOR AFR.AMER. > 60 ML/MIN (>=60 (CALC)); MAGNESIUM 2.1 mg/dL (1.6-2.3); POTASSIUM 3.5 mmol/l (3.5-5.1); SODIUM 144 mmol/l (137-146)
--- NOTE | 2017-12-24 07:00 | NUR ---
PT REPORT RECIEVED FROM DAKOTAH WANG. PT IN BED RESTING. NO S/S OF DISTRESS. FAMILY AT BEDSIDE. CALL LIGHT IN REACH. WILL CONTINUE TO MONITOR
--- NOTE | 2017-12-24 09:06 | NUR ---
PT ASSESSMENT COMPLETE. PT A/O X3. SPEECH IS CLEAR. RESP EVEN AND UNLABORED. PT STATES SHE IS HAVING MINIMAL DIFFICULTY BREATHING. NONPRODUCTIVE COUGH NOTED. NO PAIN TO THROAT. MINIMAL WHEEZING TO UPPER LOBES, ALL LUNG BECERRA DIMINISHED. O2 @2L ON PT. HOB ELEVATED. TELE IN PLACE. ABDOMEN DISTENDED,FIRM. BOWEL SOUNDS HYPOACTIVE X4. STRONG RADIAL AND PEDAL PULSES. CLARK CATHETER INTACT, DRAINING CLEAR YELLOW URINE TO GRAVITY. PT INNER THIGHS AND BUTTOCK IS REDDENED. BARRIER CREAM APPLIED. GENERALIZED EDEMA NOTED. LEGS ELEVATED. FREQUENT TURNS. NPO AT THIS TIME. POC DISCUSSED. SAFETY PRECAUTIONS IN PLACE. CALL LIGHT IN REACH. WILL CONTINUE TO MONITOR
--- NOTE | 2017-12-24 12:24 | NUR ---
PT WATCHTING TELEVISION. RESP EVEN AND UNLABORED. TELE IN PLACE. PT DENIES ANY PAIN OR NEEDS AT THIS TIME. CLARK INTACT, DRAINING TO GRAVITY. CALL LIGHT IN REACH. WILL CONTINUE TO MONITOR
--- NOTE | 2017-12-24 13:25 | NUR ---
ANESTHESIA/OR TEAM IN TO SEE PT
--- NOTE | 2017-12-24 15:17 | NUR ---
PT SITTING UP IN BED. NO S/S OF DISTRESS. PT DENIES ANY PAIN OR NEEDS. TELE IN PLACE. CALL LIGHT IN REACH. WILL CONTIUE TO MONITOR
--- NOTE | 2017-12-24 19:15 | NUR ---
CALLED TO THE PATIENT ROOM-PATIENT C/O CHEST PAIN/PRESSURE-5/10 ON PAIN SCALE. O2 VIA NASAL CANNULA IN PLACE. TELE MONITOR IN PLACE. VS TAKEN-172/84, HR-66, O2 SAT-94. RESP THERAPY CALLED AND EKG WAS DONE. SKIN IS WARM AND DRY AT THIS TIME. PATIENT IS ALERT AND ORIENTED AT THIS TIME. WILL CONT TO MONITOR. 1909-PAIN HAS RESOLVED. NO FURTHER COMPLAINTS.
--- NOTE | 2017-12-24 20:00 | NUR ---
PATIENT RESTING IN BED WITH EYES CLOSED AND HOB ELEVATED FOR ASPIRATION PRECAUTIONS. PATIENT IS NPO. O2 VIA NASAL CANNULA IN PLACE AT 2LPM. IV SITE TO RIGHT HAND INTACT WITH IVF PATENT AND INFUSING AT 125CC/HR. SITE APPEARS HEALTHY AT THIS TIME. SALINE LOCK TO RAC INTACT AND APPEARS HEALTHY. CLARK CATH PATENT AND DRAINING YELLOW URINE. TELE MONITOR IN PLACE. CALL LIGHT IN REACH. WILL CONT TO MONITOR.
[2017-12-25] VITALS (14 sets, daily range): BP systolic 142–198; BP diastolic 66–108
--- NOTE | 2017-12-25 01:00 | NUR ---
PATIENT RESTING IN BED WITH HOB ELEVATED FOR ASPIRATION PRECAUTION. TELE MONITOR IN PLACE. CLARK PATENT AND DRAINING YELLOW URINE. O2 VIA NASAL CANNULA IN PLACE AT 2LPM. IVF PATENT AND INFUSING VIA RIGHT HAND SITE. PATIENT IS NPO-EXPRESSES CONCERNS REGUARDING FEEDING TUBE PLACEMENT TODAY. SAFETY PRECAUTIONS REINFORCED.CALL LIGHT IN REACH. WILL CONT TO MONITOR.
--- NOTE | 2017-12-25 05:06 | NUR ---
PATIENT CONT TO HAVE PERSISTANT NON-PRODUCTIVE COUGH. ORAL HYGEINE DONE USING THE PINK TOOTHETTES. CONT TO BE NPO. O2 VIA NASAL CANNULA IN PLACE. CLARK OUTPUT FOR SHIFT IS 1400CC YELLOW URINE. IVF PATENT AND INFUSING VIA RIGHT HAND IV SITE. SITE REMAINS HEALTHY AT THIS TIME. PATIENT INCONT OF SMALL AMT OF LOOSE BROWN STOOL. PATIENT WAS GIVEN COMPLETE DANE AND CLARK CATH CARE USING SOAP AND WATER. BARRIER CREAM APPLIED TO REDDENED AREA'S. NYSTATIN POWDER APPLIED TO ABD FOLDS. TURN AND REPOSITIONED ON SIDE. TELE MONITOR REMAINS IN PLACE. CALL LIGHT IN REACH. WILL CONT TO MONITOR.
[2017-12-25 05:17] LABS: HEMATOCRIT 34.2 % (37.0-47.0); HEMOGLOBIN 11.4 g/dl (12.0-16.0); IMMATURE GRANULOCYTES 5.3 % (0.0-5.0); MEAN CELL VOLUME 99.1 fL CALC (80.0-100.0); MEAN CORPUSCULAR HGB CONC 33.3 g/L CALC (32.0-36.0); PLATELET COUNT 191 thou/uL (130-400); RED BLOOD COUNT 3.45 mill/uL (4.20-5.60); RED CELL DISTRI WIDTH 13.2 % (11.5-15.5)
[2017-12-25 05:28] LABS: INTERNATIONAL NORMALIZED RATIO 1.1 RATIO (0.7-1.3); PROTHROMBIN TIME 11.4 SECONDS (9.0-12.5)
[2017-12-25 05:41] LABS: BAND 1 % (0-8); MANUAL DIFFERENTIAL YES
[2017-12-25 05:42] LABS: HYPOCHROMIA FEW
[2017-12-25 05:43] LABS: MICROCYTOSIS FEW; PLATELET ESTIMATE NORMAL
[2017-12-25 05:48] LABS: ALKALINE PHOSPHATASE 41 u/l (38-126); ANION GAP 8 (6-22 (CALC)); BILIRUBIN, TOTAL 0.4 mg/dL (0.0-1.4); BUN 13 mg/dL (8-23); BUN/CREATININE RATIO 13 (12-20 (CALC)); CARBON DIOXIDE 27 mmol/l (22-30); CHLORIDE 112 mmol/l (95-108); GFR 53 ML/MIN (>=60 (CALC)); GFR FOR AFR.AMER. > 60 ML/MIN (>=60 (CALC)); POTASSIUM 2.9 mmol/l (3.5-5.1); SGOT/AST 34 u/l (9-36); SODIUM 143 mmol/l (137-146); TOTAL PROTEIN 5.9 g/dL (6.3-8.2)
--- NOTE | 2017-12-25 07:28 | NUR ---
PT REPORT RECIEVED FROM DAKOTAH WANG. PT RESTING IN BED. DENIES ANY PAIN OR NEEDS. CALL LIGHT IN REACH. WILL CONTINUE TO MONITOR.
--- NOTE | 2017-12-25 08:56 | NUR ---
PT ASSESSMENT COMPLETE. NON PRODUCTIVE COUGH NOTED. REPS SHALLOW LUNGS DIMINISHED. O2 @2L ON PT. TELE IN PLACE. BOWEL SOUNDS HYPOACTIVE. STRONG RADIAL AND PEDAL PULSES. CLARK INTACT, DRAINING CLEAR YELLOW URINE TO GRAVITY. #22 RH D5 1/2 NS @125. SITE APPEARS HEALTHY. #20 RAC. FLUSHED AND PATENT. SITE APPEARS HEALTHY. SKIN INTACT. POC DISCUSSED. SAFETY PRECAUTIONS IN PLACE. CALL LIGHT IN REACH. WILL CONTINUE TO MONITOR
--- NOTE | 2017-12-25 10:58 | NUR ---
FAMILY HAS A SPRAY FOR DRY MOUTH ASKED IF THEY CAN USE IT, DUE TO PT HAVING C/O DRY MOUTH. PT KEEPS SNEAKING THE WATER WITH THE SWABS.
--- NOTE | 2017-12-25 12:12 | NUR ---
OR UP TO TRANSPORT PT DOWNSTAIRS FOR SURGERY
--- NOTE | 2017-12-25 14:05 | NUR ---
PT RETURNED FROM OR VIA BED, REPORT GIVEN BY Letty VALERO RN. PT IS WANTING TO EAT FOOD., EXPLAINED HAVE TO CHECK ON ORDERS FROM THE
--- NOTE | 2017-12-25 14:56 | NUR ---
PER PT IS NPO UNTIL TOMORROW THEN WILL START PEG TUBE FEEDINGS.
--- NOTE | 2017-12-25 15:41 | NUR ---
SPOKE WITH FAMILY AND PT RE: PEG TUBE FEEDING , IT WILL BE STARTED TOMORROW FOR MORE HEALING ON PEG TUBE PLACEMENT.,
--- NOTE | 2017-12-25 16:20 | NUR ---
PT'S FAMILY CAME OUTSIDE OF THE ROOM. AND POINTED TO THE IV MACHINE BEEOING. THEN REALIZED THAT THE IV SITE WAS PULLED OUT ON THE R HAND. CLEANED PT AND INFORMED WILL POSSIBLY HAVE TO RESTART HER IV SITE FAMILY AND PT VERBALIZED UNDERSTANDING.
--- NOTE | 2017-12-25 17:16 | NUR ---
NEW IV SITE IN LW WITH 4TH ATTEMPT. MADE BY TESS FERNANDO AND Roxi BROWN RN. PT TOLERATED WELL. CONTINUE TO OBSERVE AND MONTIOR
--- NOTE | 2017-12-25 20:00 | NUR ---
PATIENT RESTING IN BED WITH HOB ELEVATED FOR ASPIRATION PRECAUTIONS. PATIENT IS NPO AT THIS TIME. AWAKE ALERT AND ORIENTEDX3. TELE MONITOR IN PLACE. PEG TUBE INTACT TO ABD-DRESSING IS CDI AT THIS TIME. O2 VIA NASAL CANNULA IN PLACE. CLARK PATENT AND DRAINING YELLOW URINE. IVF PATENT AND INFUSING VIA LEFT WRIST SITE-SITE APPEARS HEALTY AT THIS TIME. HEP LOCK TO RIGHT AC INTACT AND REMAINS HEALTHY AT THIS TIME. SAFETY PRECAUTIONS REINFORCED. CALL LIGHT IN REACH. WILL CONT TO MONITOR.
[2017-12-25 21:08] LABS: ANION GAP 8 (6-22 (CALC)); BUN 10 mg/dL (8-23); BUN/CREATININE RATIO 12 (12-20 (CALC)); CARBON DIOXIDE 29 mmol/l (22-30); CHLORIDE 108 mmol/l (95-108); CREATININE 0.9 mg/dL (0.5-1.0); GFR 60 ML/MIN (>=60 (CALC)); GFR FOR AFR.AMER. > 60 ML/MIN (>=60 (CALC)); POTASSIUM 2.8 mmol/l (3.5-5.1); SODIUM 141 mmol/l (137-146)
--- NOTE | 2017-12-25 22:00 | NUR ---
DR. JAIME CALLED WITH RESULTS FROM STAT BMP-ORDER RECIEVED FOR KCL 20MEQ IVPBX2 DOSES-WILL INFUSE WHEN PROFILED ON EMAR. PATIENT IS SOMEWHAT RESTLESS AND MEDICATED WITH ATIVAN 1MG IVP ORDERED. CALL LIGHT IN REACH. WILL CONT TO MONITOR.
[2017-12-26] VITALS (7 sets, daily range): BP systolic 125–164; BP diastolic 75–85
--- NOTE | 2017-12-26 01:55 | NUR ---
PATIENT RESTING IN THE BED WITH HOB ELEVATED AT ALL TIMES FOR ASPIRATION PRECAUTIONS. PATIENT CONT TO HAVE PERSISTANT NON-PRODUCTIVE WEAK COUGH. O2 VIA NASAL CANNULA IN PLACE. TELE MONITOR IN PLACE. IVF PATENT AND INFUSING 2ND KCL RIDER AT THIS TIME VIA LEFT WRIST SITE. CLARK CONT TO DRAIN YELLOW URINE.DRESSING TO PEG SITE REMAINS CDI. CALL LIGHT IN REACH. WILL CONT TO MONITOR.
--- NOTE | 2017-12-26 04:23 | NUR ---
PATIENT SLEEPING WITH HOB ELEVATED AND O2 VIA NASAL CANNULA IN PLACE. IVF PATENT AND INFUSING LEFT WRIST IV SITE AT 125CC/HR. SITE REMAINS HEALTHY AT THIS TIME. PEG TUBE CLAMPED WITH DRESSING CDI. CLARK PATENT AND DRAINING YELOOW URINE. CALL LIGHT IN REACH.WILL CONT TO MONITOR.
--- NOTE | 2017-12-26 07:00 | NUR ---
REPORT RECEIEVED FROM TOSIN CLAIRE. PT RESTING WITH EYS CLOSED. CALL PERRY IN REACH. WILL CONTINUE TO MONITOR.
--- NOTE | 2017-12-26 08:07 | NUR ---
PT RESTING QUIETLY IN BED. A&O x3. ASSESMENT COMPLETED AT THIS TIME(SEE INTERVENTIONS) LUNG SOUNDS DIMINISHED THROUGHOUT, HR NORMAL, BOWEL SOUNDS ACTIVE. NON PRODUCTIVE DRY COUGH NOTED.BRUISING TO RIGHT SIDE NOTED. PEG TUBE DRESSING DRY AND INTACT. ABD DISTENDED BUT SOFT. NO SWELLING OR EDEMA NOTED. PT HAS CLARK DRAINING TO GRAVITY CLEAR , YELLOW URINE. PT CLEANED OF SMALL BM,BARRIER CREAM APPLIED TO BUTTOCKS. NISATIN APPLIED TO GROIN. PT TURNED AND MADE COMFORTABLE. #22 LW INFUSING WELL. NO REDNESS OR EDEMA. #20 LAC FLUSHES WELL NO REDNESS OR EDEMA. PT VOICING NO COMPLAINTS AT THIS TIME. CALL PERRY IN REACH WILL CONTINUE TO MONITOR.
--- NOTE | 2017-12-26 09:37 | NUR ---
BLOOD PRESSURE TAKEN AT THIS TIME 168/81 64 STILL NOT DOWN FROM AM BP. POONAM RN MADE AWARE AND IV APPRESOLINE PER ORDER GIVEN PER ORDER.
--- NOTE | 2017-12-26 10:20 | NUR ---
BP RECHECK 145/74 HR 74.
--- NOTE | 2017-12-26 12:00 | NUR ---
PT RESTING QUIETLY IN BED. HOB ELEVATED. RESPIRATIONS EVEN AND UNLABORED. IV INFUSING TO RIGHT WRIST NO REDNESS OR EDEMA. CALL PERRY IN REACH. WILL CONTINUE TO MONITOR.
--- NOTE | 2017-12-26 13:03 | NUR ---
REPORT RECIEVED FROM TOSIN CLAIRE. PT RESTING WITH EYES CLOSED. WILL CONTINUE TO MONITOR.
--- NOTE | 2017-12-26 15:57 | NUR ---
PT RESTING IN BED WITH HOB ELEVATED. DRESSING CHANGE PROVIDED PER DR JAIME. SITE CLEANSED, FOUZIA GAUZED APPLIED. x1 CAN OF JEVITY 1.5 ADMINISTERED AND FLUSHED WITH 200 ML OF WATER , PT TOLERATED WELL.ABD FOLDS CLEAN AND NISATIN POWDER APPLIED PER ORDER. PT DENIES ANY CURRENT PAIN OR DISCOMFORT. RESPIRATIONS EVEN AND UNLABORED ON 02 @ 2L. IV CONTINUES TO INFUSE WELL TO LEFT WRIST. CALL PERRY IN REACH. WILL CONTINUE TO MONITOR
--- NOTE | 2017-12-26 18:15 | NUR ---
PT MEDICATED PER ORDER. SPOUSE AT BED SIDE. SECOND CAN OF JEVITY 1.5 PT TOLERATED FIRST CAN WELL. FLUSHED WITH 200 ML OF WATER. RESIDUAL 30ML. PT TOLERATED WELL. RESPIRATION EVEN AND UNLABNORED. IV INFUSING WELL. NO COMPLAINTS AT THIS TIME. CALL PERRY IN REACH. WILL CONTINUE TO MONITOR.
--- NOTE | 2017-12-26 20:30 | NUR ---
PT IS SLEEPING AT THIS TIME IN HIGH FOWLERS POSITION. NO S/S OF DISTRESS NOTED. IV FLUIDS ARE RUNNING/SITE APPEARS HEALTHY. WILL CONTINUE TO MONITOR.
--- NOTE | 2017-12-27 00:05 | NUR ---
PT REPOSITIONED AND CLEANED OF INCONTINENT STOOL. BARRIER CREAM AND NYSTATIN POWDER APPLIED TO REDNESS IN FOLDS AND GROIN AREA. PT MEDICATED ORDERS PROVIDE. IV ANTIBIOTIC THERAPY ADMINISTERING AT THIS TIME. CALL LIGHT AT SIDE AND PT ENCOURAGED TO CALL.
--- NOTE | 2017-12-27 02:14 | NUR ---
PT IS SLEEPING W/NO S/O DISTRESS AT THIS TIME. PT REPOSITIONED W/PILLOWS. CALL LIGHT AT SIDE W/IN REACH.
[2017-12-27 05:15] VITALS: BP 144/82
--- NOTE | 2017-12-27 05:15 | NUR ---
ASSISTED AIDE IN PROVIDING BEDBATH TO PT ALONG W/DANE-CARE AND CLARK CARE. PT CLEANED OF INCONTINENT YELLOW LOOSE STOOL. NYSTATIN POWDER APPLIED TO REDDENED FOLDS AND BARRIER CREAM TO REDNESS TO COCCYX. PT REPOSITIONED W/PILLOWS AND CALL LIGHT PLACED W/IN REACHING ABILITY. NO S/O DISTRESS AT THIS TIME. PT APPEARED CALM, DENIES PAIN. PT LEFT W/HOB ELEVATED ORDERS PROVIDE.
[2017-12-27 06:03] LABS: HEMATOCRIT 34.6 % (37.0-47.0); HEMOGLOBIN 11.8 g/dl (12.0-16.0); IMMATURE GRANULOCYTES 5.6 % (0.0-5.0); MEAN CELL VOLUME 99.1 fL CALC (80.0-100.0); MEAN CORPUSCULAR HGB 33.8 pG CALC (26.0-32.0); MEAN CORPUSCULAR HGB CONC 34.1 g/L CALC (32.0-36.0); PLATELET COUNT 169 thou/uL (130-400); RED BLOOD COUNT 3.49 mill/uL (4.20-5.60); RED CELL DISTRI WIDTH 13.5 % (11.5-15.5)
[2017-12-27 06:13] LABS: ALBUMIN 2.6 g/dL (3.2-5.0); ALKALINE PHOSPHATASE 51 u/l (38-126); ANION GAP 6 (6-22 (CALC)); BILIRUBIN, TOTAL 0.4 mg/dL (0.0-1.4); BUN 13 mg/dL (8-23); BUN/CREATININE RATIO 15 (12-20 (CALC)); CARBON DIOXIDE 28 mmol/l (22-30); CHLORIDE 109 mmol/l (95-108); CREATININE 0.9 mg/dL (0.5-1.0); GFR 60 ML/MIN (>=60 (CALC)); GFR FOR AFR.AMER. > 60 ML/MIN (>=60 (CALC)); MAGNESIUM 1.9 mg/dL (1.6-2.3); POTASSIUM 2.8 mmol/l (3.5-5.1); SGOT/AST 21 u/l (9-36); SODIUM 140 mmol/l (137-146); TOTAL PROTEIN 5.3 g/dL (6.3-8.2)
[2017-12-27 06:22] LABS: MANUAL DIFFERENTIAL YES
--- NOTE | 2017-12-27 07:00 | NUR ---
REPORT RECEIVED FROM KAVON CLAIRE. PT RESTING QUIETLY IN BED. IV INFUSING WELL NO REDNESS OR EDEMA. RESPIRATIONS EVEN AND UNLABORED. CALL PERRY IN REACH WILL CONTINUE TO MONITOR.
[2017-12-27 08:17] VITALS: BP 158/83
--- NOTE | 2017-12-27 08:40 | NUR ---
PT RESTING IN BED. NO S/S OF DISTRESS. ASESSMENT COMPLETED AT THIS TIME(SEE INTERVENTIONS). LUNG SOUNDS DIMINISHED THROUGHOUT, HR NORMAL, BOWEL SOUNDS ACTIVE, NO SWELLING OR EDEMA NOTED. A&O x3. #20 IN RAC D/C AT THIS TIME DUE TO LEAKING. #22 IN LW INFUSING WELL .PT ON 2L VIA NASAL CANNULA. NO COMPLAINTS FROM PT AT THIS TIME. ANXIOUS TO EAT. REIENFORCED PT CANNOT HAVE ANYTHING BY MOUTH. PT VERBLIZES UNDERSTANDING BUT NOT HAPPY ABOUT IT. NISATIN APPLIED AND PT REPOSITIONED FOR COMFORT. CALL PERRY IN REACH. WILL CONTINUE TO MONITOR.
--- NOTE | 2017-12-27 09:10 | NUR ---
PT RESTINGON BED WITH HOB ELEVATED. x2 CANS OF JEVITY 1.5 ADMINISTERED AND FLUSHED WITH 200 MLS OF WATER PT TOLERATED WELL. PT DENIES ANY DISCOMFORT OR PAIN. CALL PERRY IN REACH WILL CONTINUE TO MONITOR.
--- NOTE | 2017-12-27 10:10 | NUR ---
DR JAIME IN TO SEE PT. PLN OF CHAITANYA DISCUSSED. EDUARDO TO BE D/C PT VERBALIZES UNDERSTANDING.
--- NOTE | 2017-12-27 10:20 | NUR ---
CLARK REMOVED AT THIS TIME. BALLOON FULL DEFLATED. PT TOLERATED WEL. IFORMED TO CALL FOR BEDPAN ASSISTANCE WHEN VOIDING IS NEEDED. PT VERBALIZES UNDERSTANDING. CALL PERRY IN REACH. WILL CONTINUR TO MONITOR.
[2017-12-27 11:00] VITALS: BP 142/75
--- NOTE | 2017-12-27 11:00 | NUR ---
PT VOIDING CLEAR YELLOW URINE IN BED HENDRIX. CLEANED AND REPOSITIONED. PT TOLERATED WELL.
--- NOTE | 2017-12-27 15:00 | NUR ---
PT RESTING IN BED WITH EYES CLOSED WITH HOB ELEVATED. . NO S/S OF DISTRESS. CALL PERRY IN REACH. WILL CONTINUE TO MONITOR.
[2017-12-27 15:34] VITALS: BP 144/81
--- NOTE | 2017-12-27 18:00 | NUR ---
PT GIVEN x2 CANS OF JEVITY WITH 200 ML OF WATER AT THIS TIME. TOLERATED WELL. NO S/S OF DISTRESS. NO COMPLAINTS AT THIS TIME. WILL CONTINUE TO MONITOR
[2017-12-27 19:08] VITALS: BP 124/65
--- NOTE | 2017-12-27 19:50 | NUR ---
REPORT GIVEN BY MARILEE FERNANDO. PATIENT AWAKE AND WATCHING TV IN BED. RESP EVEN AND UNLABORED. NO S/S OF DISTRESS NOTED. PLAN OF CARE DISCUSSED, FALL PRECAUTIONS IN PLACE, AND PATIENT INFORMED TO CALL WITH ANY QUESTIONS OR CONCERNS.
--- NOTE | 2017-12-27 23:46 | NUR ---
PATIENT RESTING WITH EYES CLOSED. RESP EVEN AND UNLABORED. NO S/S OF DISTRESS NOTED.
[2017-12-28 00:09] VITALS: BP 129/62
--- NOTE | 2017-12-28 03:59 | NUR ---
PATIENT RESTING WITH EYES CLOSED. RESP EVEN AND UNLOABORED. NO S/S OF DISTRESS NOTED.
[2017-12-28 04:36] VITALS: BP 178/88
--- NOTE | 2017-12-28 04:44 | NUR ---
PATIENT'S BP WAS ELEVATED THIS MORNING DURING MORNING VITALS, MEDICATED PER MD ORDERS.
[2017-12-28 05:25] LABS: HEMATOCRIT 34.4 % (37.0-47.0); HEMOGLOBIN 11.5 g/dl (12.0-16.0); MEAN CELL VOLUME 99.7 fL CALC (80.0-100.0); MEAN CORPUSCULAR HGB 33.3 pG CALC (26.0-32.0); MEAN CORPUSCULAR HGB CONC 33.4 g/L CALC (32.0-36.0); PLATELET COUNT 164 thou/uL (130-400); RED BLOOD COUNT 3.45 mill/uL (4.20-5.60); RED CELL DISTRI WIDTH 13.7 % (11.5-15.5)
[2017-12-28 05:41] LABS: ANION GAP 7 (6-22 (CALC)); BUN 14 mg/dL (8-23); BUN/CREATININE RATIO 20 (12-20 (CALC)); CARBON DIOXIDE 30 mmol/l (22-30); CHLORIDE 108 mmol/l (95-108); CREATININE 0.7 mg/dL (0.5-1.0); GFR > 60 ML/MIN (>=60 (CALC)); GFR FOR AFR.AMER. > 60 ML/MIN (>=60 (CALC)); MAGNESIUM 1.9 mg/dL (1.6-2.3); POTASSIUM 3.2 mmol/l (3.5-5.1); SODIUM 143 mmol/l (137-146)
[2017-12-28 07:02] LABS: IMMATURE GRANULOCYTES 6.6 % (0.0-5.0); MANUAL DIFFERENTIAL YES
[2017-12-28 09:17] VITALS: BP 142/73
--- NOTE | 2017-12-28 09:20 | NUR ---
PT RESTING IN BED, NO SIGNS OF DISTRESS NOTED, RESP EVEN AND UNLABORED. PT ALERT AND ORIENTED X3. PT C/O PAIN AT THIS TIME, ASSESSED PEG TUBE, PLACEMENT CHECKED AND ASPIRATED CLEAR LIQUID INTO SYRINGE. DRESSING TO PEG TUBE CHANGED. MED AND JEVITY GIVEN VIA PEG TUBE. PT TOLERATED WELL NO NAUSEA OR VOMITTING. PT ONLY C/O PAIN, COMMERCIAL GLAZIER AT BEDSIDE AND NOTIFIED. AWAITING NEW ORDERS. DISCUSSED POC AND INFUSION OF IV POTASSIUM, PT AND IN AGREEMENT. PERICARE PROVIDED AND NYSTATIN PLACED TO REDDENED AREA IN GROIN. ASSESSMENT COMPLETED AT THIS TIME. WILL RETURN WITH PAIN MEDICATION. CALL LIGHT IN REACH,CONTINUE TO MONITOR.
[2017-12-28] MEDS ORDERED: AMOX/K CLAV875 M1 PO (10:05)
[2017-12-28] MEDS ORDERED: MEDDOSEPAK PO (10:06)
--- NOTE | 2017-12-28 10:52 | NUR ---
PT MEDICATED WITH PAIN MEDICATION AND POTASSIUM INFUSION INITIATED. VISITORS TO BEDSIDE.
[2017-12-28 11:52] VITALS: BP 124/80
[2017-12-28] MEDS ORDERED: IBUPROFEN600 MG PO (13:41)
--- NOTE | 2017-12-28 14:00 | NUR ---
ENTERED ROOM FOR 1400 FEEDING DUE, PT RESTING IN BED WITH HOB ELEVATED. RESIDUAL AT THIS TIME 150, PER INTERNET E COMMERCE SPECIALIST OK TO GIVE 1 CAN OF JEVITY DUE NOW. FLUSHED WITH WATER. PT TOLERATED WELL. C/O PAIN, NOTIFIED INTERNET [employer]ER[employer] SPECIALIST.
--- NOTE | 2017-12-28 14:37 | NUR ---
REPORT GIVEN TO TECHNICIAN PLANT AND MAINTENANCE AT [facility], WILL SENT PT WITH REMAINING JEVITY DUE TO R FACILITY NOT EXPECTING SUPPLY UNTIL POSSIBLY MIDDLE OF THE WEEK. PT WILL GO WITH . ETA 3:30
--- NOTE | 2017-12-28 15:12 | NUR ---
PT GIVEN IV REGLAN, NO SIGNS OF DISTRESS NOTED, RESP EVEN AND UNLABORED. AT BEDSIDE, CALL LIGHT IN REACH,CONTINUE TO MONITOR.
--- NOTE | 2017-12-28 15:22 | NUR ---
IV SITE DC'D PT TOLERATED WELL, AWAITING ARRIVAL OF [employer] STAFF.
--- NOTE | 2017-12-28 15:50 | NUR ---
Discharge instructions given. Patient verbalizes understanding of same. Discharged in stable condition via Wheelchair to [facility] with staff. All belongings sent with pt.
== END 2017-12-28 15:40 | DRG 178 ==
LOC: ED 14:01 → ED-I 16:35 → ED 17:25 → MS2 17:26
PROVIDERS: Emergency Medicine; Nurse Practitioner Family; ADMIT Internal Medicine Nephrology; ATTEND Internal Medicine Nephrology
PROC: 0T9B70Z Drainage of Bladder with Drainage Device, Via Natural or Artificial Opening (ICD-10-PCS; 2017-12-20)
PROC: 0DH63UZ Insertion of Feeding Device into Stomach, Percutaneous Approach (ICD-10-PCS; principal; 2017-12-25)
DX: J69.0 Pneumonitis due to inhalation of food and vomit (principal); N17.9 Acute kidney failure, unspecified; G23.1 Progressive supranuclear ophthalmoplegia [Steele-Richardson-Olszewski]; G20 Parkinson's disease; R13.10 Dysphagia, unspecified; I12.9 Hypertensive chronic kidney disease with stage 1 through stage 4 chronic kidney disease, or unspecified chronic kidney disease; I16.0 Hypertensive urgency; N18.9 Chronic kidney disease, unspecified; J44.9 Chronic obstructive pulmonary disease, unspecified; D51.3 Other dietary vitamin B12 deficiency anemia; M19.90 Unspecified osteoarthritis, unspecified site; E03.9 Hypothyroidism, unspecified; E87.6 Hypokalemia; E66.01 Morbid (severe) obesity due to excess calories; F41.8 Other specified anxiety disorders; M62.562 Muscle wasting and atrophy, not elsewhere classified, left lower leg; M62.561 Muscle wasting and atrophy, not elsewhere classified, right lower leg; E86.0 Dehydration; Z66 Do not resuscitate; Z99.3 Dependence on wheelchair; Z68.37 Body mass index [BMI] 37.0-37.9, adult; Z87.891 Personal history of nicotine dependence
CPT/HCPCS: J1650; J2060; S0164

== ENCOUNTER 2018-03-06 10:23 | Inpatient (IN) | payer MEDICARE, OTHER ==
[~2018-03-06] VITALS: Ht 160 cm; Wt 94.0 kg
[~2018-03-06 10:23] MED LIST changes: -ADLT ASA LOW81 MG PO; +ADLT ASA LOW81 MG VT; +AMOX/K CLAV875 M1 PO; -ARTIF TEARS OD; +ARTIF TEARS OU; -ATENOLOL50 MG PO; +ATENOLOL50 MG VT; -B121000 MCG PO; +B121000 MCG VT; -CARB/LEVO1 TA5 PO; +CARB/LEVO1 TA5 VT; -ENDUR-ACIN500 MG PO; +ENDUR-ACIN500 MG VT; +ESCITALOPRAM OX10 MG VT; +IBUPROFEN600 MG PO; +LASIX40 MG VT; -LEVOTHYROXIN100 MC1 PO; +LEVOTHYROXIN100 MC1 VT; +MEDDOSEPAK PO
[2018-03-06 11:39] LABS: HEMATOCRIT 36.1 % (37.0-47.0); IMMATURE GRANULOCYTES 0.7 % (0.0-5.0); MEAN CORPUSCULAR HGB 33.9 pG CALC (26.0-32.0); MEAN CORPUSCULAR HGB CONC 33.2 g/L CALC (32.0-36.0); NEUT# 6.71 thou/uL (2.00-7.15); RED BLOOD COUNT 3.54 mill/uL (4.20-5.60); RED CELL DISTRI WIDTH 13.6 % (11.5-15.5)
[2018-03-06 12:05] LABS: ALKALINE PHOSPHATASE 68 u/l (38-126); BILIRUBIN, TOTAL 0.9 mg/dL (0.0-1.4); BUN 20 mg/dL (8-23); BUN/CREATININE RATIO 20 (12-20 (CALC)); CARBON DIOXIDE 27 mmol/l (22-30); CHLORIDE 98 mmol/l (95-108); GFR 53 ML/MIN (>=60 (CALC)); GFR FOR AFR.AMER. > 60 ML/MIN (>=60 (CALC)); SGOT/AST 21 u/l (9-36); SODIUM 138 mmol/l (137-146)
[2018-03-06 12:06] LABS: ALBUMIN 4.2 g/dL (3.2-5.0); ANION GAP 17 (6-22 (CALC)); POTASSIUM 4.1 mmol/l (3.5-5.1); TOTAL PROTEIN 7.4 g/dL (6.3-8.2)
[2018-03-06] MEDS ORDERED: AMLOD/BENAZP1 CA1 VT (13:48)
[2018-03-06] MEDS ORDERED: FAMOTIDINE20 M1 VT (13:49)
[2018-03-06] MEDS ORDERED: MULTIVITAM11 VT (13:52)
[2018-03-06] MEDS ORDERED: REFRESH CELLUVISC OU (13:54)
[2018-03-06] MEDS ORDERED: LOSARTAN POT50 MG VT (13:58)
[2018-03-06 16:14] VITALS: BP 114/48
[2018-03-06 19:05] VITALS: BP 119/67
[2018-03-07 00:30] VITALS: BP 98/53
[2018-03-07 04:21] VITALS: BP 111/61
[2018-03-07 05:59] LABS: HEMATOCRIT 31.8 % (37.0-47.0); HEMOGLOBIN 10.5 g/dl (12.0-16.0); IMMATURE GRANULOCYTES 0.5 % (0.0-5.0); MEAN CELL VOLUME 103.2 fL CALC (80.0-100.0); MEAN CORPUSCULAR HGB 34.1 pG CALC (26.0-32.0); NEUT# 3.5 thou/uL (2.00-7.15); RED BLOOD COUNT 3.08 mill/uL (4.20-5.60); RED CELL DISTRI WIDTH 13.7 % (11.5-15.5)
[2018-03-07 06:30] LABS: ALKALINE PHOSPHATASE 51 u/l (38-126); AMYLASE < 30 u/l (30-110); ANION GAP 14 (6-22 (CALC)); BILIRUBIN, TOTAL 0.5 mg/dL (0.0-1.4); BUN 17 mg/dL (8-23); BUN/CREATININE RATIO 18 (12-20 (CALC)); CARBON DIOXIDE 24 mmol/l (22-30); CHLORIDE 104 mmol/l (95-108); CREATININE 0.9 mg/dL (0.5-1.0); GFR 60 ML/MIN (>=60 (CALC)); GFR FOR AFR.AMER. > 60 ML/MIN (>=60 (CALC)); LIPASE 106 u/l (23-300); MAGNESIUM 1.9 mg/dL (1.6-2.3); POTASSIUM 4.3 mmol/l (3.5-5.1); SGOT/AST 20 u/l (9-36); SODIUM 138 mmol/l (137-146); TOTAL PROTEIN 6.3 g/dL (6.3-8.2)
[2018-03-07 06:31] LABS: ALBUMIN 3.3 g/dL (3.2-5.0)
[2018-03-07 08:08] VITALS: BP 113/49
[2018-03-07 11:00] VITALS: BP 116/74
[2018-03-07 15:50] VITALS: BP 114/63
[2018-03-07 19:00] VITALS: BP 135/76
[2018-03-08 00:07] VITALS: BP 119/65
[2018-03-08 05:04] VITALS: BP 126/68
[2018-03-08 06:27] LABS: HEMATOCRIT 30.9 % (37.0-47.0); HEMOGLOBIN 10.2 g/dl (12.0-16.0); MEAN CELL VOLUME 102.3 fL CALC (80.0-100.0); MEAN CORPUSCULAR HGB 33.8 pG CALC (26.0-32.0); RED BLOOD COUNT 3.02 mill/uL (4.20-5.60); RED CELL DISTRI WIDTH 13.8 % (11.5-15.5)
[2018-03-08 09:59] VITALS: BP 122/55
[2018-03-08 10:50] VITALS: BP 106/49
[2018-03-08 12:06] LABS: URINE BILIRUBIN - DIPSTICK NEGATIVE (NEGATIVE); URINE BLOOD DIPSTICK NEGATIVE (NEGATIVE); URINE COLOR YELLOW; URINE GLUCOSE - DIPSTICK NEGATIVE (NEGATIVE); URINE KETONE NEGATIVE (NEGATIVE); URINE LEUK ESTERASE NEGATIVE (NEGATIVE); URINE NITRITE - DIPSTICK NEGATIVE (Negative); URINE PROTEIN - DIPSTICK NEGATIVE (NEG-TRACE); URINE UROBILINOGEN - DIPSTICK 0.2 E.U./dL (0.2)
[2018-03-08 15:36] VITALS: BP 128/56
[2018-03-08 19:05] VITALS: BP 123/61
[2018-03-09 00:10] VITALS: BP 129/64
[2018-03-09 05:33] VITALS: BP 119/53
[2018-03-09 07:28] VITALS: BP 110/59
[2018-03-09 11:36] VITALS: BP 124/62
[2018-03-09 15:45] VITALS: BP 117/65
[2018-03-09 19:05] VITALS: BP 137/80
[2018-03-10 00:11] VITALS: BP 144/79
[2018-03-10 04:48] VITALS: BP 120/75
[2018-03-10 08:18] VITALS: BP 140/66
[2018-03-10 11:21] VITALS: BP 129/83
[2018-03-10 14:55] VITALS: BP 137/66
[2018-03-10 19:00] VITALS: BP 129/80
[2018-03-11] VITALS (7 sets, daily range): BP systolic 101–144; BP diastolic 52–75
[2018-03-11 05:57] LABS: HEMATOCRIT 30.2 % (37.0-47.0); IMMATURE GRANULOCYTES 0.6 % (0.0-5.0); MEAN CORPUSCULAR HGB 33.8 pG CALC (26.0-32.0); MEAN CORPUSCULAR HGB CONC 33.1 g/L CALC (32.0-36.0); NEUT# 4.25 thou/uL (2.00-7.15); RED BLOOD COUNT 2.96 mill/uL (4.20-5.60); RED CELL DISTRI WIDTH 13.1 % (11.5-15.5)
[2018-03-11 06:19] LABS: ALBUMIN 3.1 g/dL (3.2-5.0); ALKALINE PHOSPHATASE 68 u/l (38-126); ANION GAP 10 (6-22 (CALC)); BILIRUBIN, TOTAL 0.4 mg/dL (0.0-1.4); BUN 13 mg/dL (8-23); BUN/CREATININE RATIO 15 (12-20 (CALC)); CARBON DIOXIDE 27 mmol/l (22-30); CHLORIDE 104 mmol/l (95-108); CREATININE 0.9 mg/dL (0.5-1.0); GFR 60 ML/MIN (>=60 (CALC)); GFR FOR AFR.AMER. > 60 ML/MIN (>=60 (CALC)); MAGNESIUM 2.1 mg/dL (1.6-2.3); POTASSIUM 4.1 mmol/l (3.5-5.1); SGOT/AST 17 u/l (9-36); SODIUM 138 mmol/l (137-146); TOTAL PROTEIN 5.9 g/dL (6.3-8.2)
[2018-03-12 04:30] VITALS: BP 115/62
[2018-03-12 05:47] LABS: HEMATOCRIT 29.7 % (37.0-47.0); HEMOGLOBIN 9.9 g/dl (12.0-16.0); IMMATURE GRANULOCYTES 0.3 % (0.0-5.0); MEAN CELL VOLUME 102.4 fL CALC (80.0-100.0); MEAN CORPUSCULAR HGB 34.1 pG CALC (26.0-32.0); MEAN CORPUSCULAR HGB CONC 33.3 g/L CALC (32.0-36.0); NEUT# 5.36 thou/uL (2.00-7.15); RED BLOOD COUNT 2.9 mill/uL (4.20-5.60); RED CELL DISTRI WIDTH 13.1 % (11.5-15.5)
[2018-03-12 06:08] LABS: ALBUMIN 3.2 g/dL (3.2-5.0); ALKALINE PHOSPHATASE 68 u/l (38-126); ANION GAP 13 (6-22 (CALC)); BILIRUBIN, TOTAL 0.4 mg/dL (0.0-1.4); BUN 14 mg/dL (8-23); BUN/CREATININE RATIO 17 (12-20 (CALC)); CARBON DIOXIDE 26 mmol/l (22-30); CHLORIDE 104 mmol/l (95-108); CREATININE 0.8 mg/dL (0.5-1.0); GFR > 60 ML/MIN (>=60 (CALC)); GFR FOR AFR.AMER. > 60 ML/MIN (>=60 (CALC)); MAGNESIUM 2.2 mg/dL (1.6-2.3); POTASSIUM 4.1 mmol/l (3.5-5.1); SGOT/AST 17 u/l (9-36); SODIUM 139 mmol/l (137-146); TOTAL PROTEIN 6.1 g/dL (6.3-8.2)
[2018-03-12 08:12] VITALS: BP 120/35
[2018-03-12 15:15] VITALS: BP 116/63
[2018-03-12 19:06] VITALS: BP 154/96
[2018-03-13 04:23] VITALS: BP 142/82
[2018-03-13 08:09] VITALS: BP 111/62
[2018-03-13 16:03] VITALS: BP 161/81
[2018-03-13 19:35] VITALS: BP 133/78
[2018-03-14 04:05] VITALS: BP 111/68
[2018-03-14 05:42] LABS: HEMATOCRIT 31.2 % (37.0-47.0); HEMOGLOBIN 10.2 g/dl (12.0-16.0); IMMATURE GRANULOCYTES 0.4 % (0.0-5.0); MEAN CELL VOLUME 101.3 fL CALC (80.0-100.0); MEAN CORPUSCULAR HGB 33.1 pG CALC (26.0-32.0); MEAN CORPUSCULAR HGB CONC 32.7 g/L CALC (32.0-36.0); NEUT# 4.17 thou/uL (2.00-7.15); RED BLOOD COUNT 3.08 mill/uL (4.20-5.60); RED CELL DISTRI WIDTH 12.9 % (11.5-15.5)
[2018-03-14 06:14] LABS: ALBUMIN 3.2 g/dL (3.2-5.0); ALKALINE PHOSPHATASE 64 u/l (38-126); ANION GAP 12 (6-22 (CALC)); BILIRUBIN, TOTAL 0.3 mg/dL (0.0-1.4); BUN 13 mg/dL (8-23); BUN/CREATININE RATIO 14 (12-20 (CALC)); CARBON DIOXIDE 28 mmol/l (22-30); CHLORIDE 104 mmol/l (95-108); CREATININE 0.9 mg/dL (0.5-1.0); GFR 60 ML/MIN (>=60 (CALC)); GFR FOR AFR.AMER. > 60 ML/MIN (>=60 (CALC)); MAGNESIUM 2.1 mg/dL (1.6-2.3); POTASSIUM 4.1 mmol/l (3.5-5.1); SGOT/AST 19 u/l (9-36); SODIUM 140 mmol/l (137-146); TOTAL PROTEIN 6.2 g/dL (6.3-8.2)
[2018-03-14 08:46] VITALS: BP 151/87
[2018-03-14 11:37] VITALS: BP 146/81
[2018-03-14 15:22] VITALS: BP 129/66
[2018-03-14 19:28] VITALS: BP 105/57
[2018-03-15 04:05] VITALS: BP 134/75
[2018-03-15 04:21] LABS: HEMATOCRIT 30.6 % (37.0-47.0); HEMOGLOBIN 10.1 g/dl (12.0-16.0); IMMATURE GRANULOCYTES 0.5 % (0.0-5.0); MEAN CELL VOLUME 101.7 fL CALC (80.0-100.0); MEAN CORPUSCULAR HGB 33.6 pG CALC (26.0-32.0); NEUT# 4.34 thou/uL (2.00-7.15); RED BLOOD COUNT 3.01 mill/uL (4.20-5.60); RED CELL DISTRI WIDTH 12.9 % (11.5-15.5)
[2018-03-15 04:48] LABS: ALKALINE PHOSPHATASE 56 u/l (38-126); ANION GAP 12 (6-22 (CALC)); BILIRUBIN, TOTAL 0.3 mg/dL (0.0-1.4); BUN 14 mg/dL (8-23); BUN/CREATININE RATIO 15 (12-20 (CALC)); CARBON DIOXIDE 29 mmol/l (22-30); CHLORIDE 103 mmol/l (95-108); CREATININE 0.9 mg/dL (0.5-1.0); GFR 60 ML/MIN (>=60 (CALC)); GFR FOR AFR.AMER. > 60 ML/MIN (>=60 (CALC)); MAGNESIUM 2.1 mg/dL (1.6-2.3); POTASSIUM 3.9 mmol/l (3.5-5.1); SGOT/AST 16 u/l (9-36); SODIUM 140 mmol/l (137-146); TOTAL PROTEIN 5.8 g/dL (6.3-8.2)
[2018-03-15 08:39] VITALS: BP 133/76
[2018-03-15 11:04] VITALS: BP 133/79
[2018-03-15] MEDS ORDERED: AUGMENTIN250 MG/5 M VT (14:06)
[2018-03-15] MEDS ORDERED: ROBITUSSIN AC10 ML VT (14:06)
[2018-03-15] MEDS ORDERED: NYSTOP100000 UNI TOP (14:06)
[2018-03-15 14:29] VITALS: BP 102/57
== END 2018-03-15 16:11 | DRG 178 ==
LOC: ED 10:23 → ED-I 13:09 → ED 14:07 → MS2 14:08
PROVIDERS: Emergency Medicine; Nurse Practitioner Family; ADMIT Internal Medicine Nephrology; ATTEND Internal Medicine Nephrology
PROC: 0T9B70Z Drainage of Bladder with Drainage Device, Via Natural or Artificial Opening (ICD-10-PCS; principal; 2018-03-08)
DX: J69.0 Pneumonitis due to inhalation of food and vomit (principal); G23.1 Progressive supranuclear ophthalmoplegia [Steele-Richardson-Olszewski]; J44.9 Chronic obstructive pulmonary disease, unspecified; I10 Essential (primary) hypertension; G20 Parkinson's disease; E11.65 Type 2 diabetes mellitus with hyperglycemia; M19.90 Unspecified osteoarthritis, unspecified site; F41.9 Anxiety disorder, unspecified; F32.9 Major depressive disorder, single episode, unspecified; L30.4 Erythema intertrigo; R13.10 Dysphagia, unspecified; E87.70 Fluid overload, unspecified; E88.09 Other disorders of plasma-protein metabolism, not elsewhere classified; E78.5 Hyperlipidemia, unspecified; E03.9 Hypothyroidism, unspecified; E87.6 Hypokalemia; E53.8 Deficiency of other specified B group vitamins; E66.01 Morbid (severe) obesity due to excess calories; Z93.1 Gastrostomy status; Z68.36 Body mass index [BMI] 36.0-36.9, adult; Z87.891 Personal history of nicotine dependence
CPT/HCPCS: G0378; J0131; Q9967

== ENCOUNTER 2018-11-29 18:36 | Emergency (ER) | payer MEDICARE, OTHER ==
[~2018-11-29] VITALS: Ht 160 cm; Wt 90.0 kg
[~2018-11-29 18:36] MED LIST changes: +AMLOD/BENAZP1 CA1 VT; +AUGMENTIN250 MG/5 M VT; +FAMOTIDINE20 M1 VT; +LOSARTAN POT50 MG VT; +MULTIVITAM11 VT; +NYSTOP100000 UNI TOP; +REFRESH CELLUVISC OU; +ROBITUSSIN AC10 ML VT
[2018-11-29 19:04] VITALS: BP 151/70
== END 2018-11-29 19:10 ==
LOC: ED 18:36
PROC: 0DH67UZ Insertion of Feeding Device into Stomach, Via Natural or Artificial Opening (ICD-10-PCS; principal; 2018-11-29)
DX: Z43.1 Encounter for attention to gastrostomy (principal); I10 Essential (primary) hypertension; G20 Parkinson's disease

== ENCOUNTER 2019-01-16 08:42 | Emergency (ER) | payer MEDICARE, OTHER ==
[~2019-01-16] VITALS: Ht 160 cm; Wt 87.0 kg
[2019-01-16] MEDS ORDERED: ACETAMINOPHEN PEG (09:16)
[2019-01-16 11:32] VITALS: BP 122/68
== END 2019-01-16 11:32 | disposition home or self-care (01) ==
LOC: ED 08:42
PROC: 0DH63UZ Insertion of Feeding Device into Stomach, Percutaneous Approach (ICD-10-PCS; principal; 2019-01-16)
DX: Z43.1 Encounter for attention to gastrostomy (principal); R13.10 Dysphagia, unspecified; I10 Essential (primary) hypertension; G20 Parkinson's disease

== ENCOUNTER 2019-02-03 12:05 | Emergency (ER) | payer MEDICARE, OTHER ==
[~2019-02-03] VITALS: Ht 160 cm; Wt 100.0 kg
[~2019-02-03 12:05] MED LIST changes: +ACETAMINOPHEN PEG
[2019-02-03] MEDS ORDERED: AUGMENTIN500TAB PO (12:50)
[2019-02-03 14:12] VITALS: BP 128/79
== END 2019-02-03 14:17 ==
LOC: ED 12:05
DX: R09.89 Other specified symptoms and signs involving the circulatory and respiratory systems (principal); I10 Essential (primary) hypertension; G20 Parkinson's disease; R13.10 Dysphagia, unspecified; Z93.1 Gastrostomy status

== ENCOUNTER 2019-02-16 | Emergency (ER) | payer MEDICARE, OTHER ==
[~2019-02-16] MED LIST changes: +AUGMENTIN500TAB PO; +COZAAR50 MG VT; -LOSARTAN POT50 MG VT
== END 2019-02-16 15:58 ==
PROC: 0D20XUZ Change Feeding Device in Upper Intestinal Tract, External Approach (ICD-10-PCS; principal; 2019-02-16)
DX: Z03.89 Encounter for observation for other suspected diseases and conditions ruled out (principal); I10 Essential (primary) hypertension; G20 Parkinson's disease; R13.10 Dysphagia, unspecified; Z93.1 Gastrostomy status; Y83.3 Surgical operation with formation of external stoma as the cause of abnormal reaction of the patient, or of later complication, without mention of misadventure at the time of the procedure

== ENCOUNTER 2019-02-16 | Emergency (ER) | payer MEDICARE, OTHER | END 2019-02-16 19:37 | disposition T-DHR | PROC: 0D20XUZ Change Feeding Device in Upper Intestinal Tract, External Approach (ICD-10-PCS; principal; 2019-02-16) | DX: K94.23 Gastrostomy malfunction (principal); I10 Essential (primary) hypertension; G20 Parkinson's disease; R13.10 Dysphagia, unspecified; Y83.3 Surgical operation with formation of external stoma as the cause of abnormal reaction of the patient, or of later complication, without mention of misadventure at the time of the procedure ==

== ENCOUNTER 2019-02-20 | Emergency (ER) | payer MEDICARE, OTHER ==
[2019-02-20] MEDS ORDERED: TRAMADOL HCL50 MG PO (11:18)
== END 2019-02-20 13:00 ==
PROC: 0D20XUZ Change Feeding Device in Upper Intestinal Tract, External Approach (ICD-10-PCS; principal; 2019-02-20)
DX: Z43.1 Encounter for attention to gastrostomy (principal); I11.0 Hypertensive heart disease with heart failure; G20 Parkinson's disease; R13.10 Dysphagia, unspecified

== ENCOUNTER 2019-02-22 22:27 | Emergency (ER) | payer MEDICARE, OTHER ==
[~2019-02-22 22:27] MED LIST changes: +TRAMADOL HCL50 MG PO
[2019-02-22 22:40] VITALS: BP 133/76
== END 2019-02-22 22:40 ==
LOC: ED 22:27
DX: Z43.1 Encounter for attention to gastrostomy (principal); G20 Parkinson's disease; I10 Essential (primary) hypertension; R13.10 Dysphagia, unspecified

== ENCOUNTER 2019-03-17 05:23 | Inpatient (IN) | payer MEDICARE, OTHER ==
[~2019-03-17] VITALS: Ht 160 cm; Wt 84.0 kg
[2019-03-17 06:44] LABS: HEMATOCRIT 30.5 % (37.0-47.0); HEMOGLOBIN 10.6 g/dl (12.0-16.0); IMMATURE GRANULOCYTES 0.4 % (0.0-5.0); MEAN CELL VOLUME 98.1 fL CALC (80.0-100.0); MEAN CORPUSCULAR HGB 34.1 pG CALC (26.0-32.0); MEAN CORPUSCULAR HGB CONC 34.8 g/L CALC (32.0-36.0); NEUT# 5.92 thou/uL (2.00-7.15); RED BLOOD COUNT 3.11 mill/uL (4.20-5.60); RED CELL DISTRI WIDTH 13.3 % (11.5-15.5)
[2019-03-17 07:00] LABS: ALKALINE PHOSPHATASE 70 u/l (38-126); BUN 22 mg/dL (8-23); BUN/CREATININE RATIO 28 (12-20 (CALC)); CARBON DIOXIDE 31 mmol/l (22-30); CREATININE 0.8 mg/dL (0.5-1.0); GFR > 60 ML/MIN (>=60 (CALC)); GFR FOR AFR.AMER. > 60 ML/MIN (>=60 (CALC)); PROTHROMBIN TIME 10.4 SECONDS (9.0-12.5); SGOT/AST 25 u/l (9-36)
[2019-03-17 07:02] LABS: ALBUMIN 3.9 g/dL (3.2-5.0); ANION GAP 13 (6-22 (CALC)); BILIRUBIN, TOTAL 0.6 mg/dL (0.0-1.4); CHLORIDE 86 mmol/l (95-108); POTASSIUM 4.8 mmol/l (3.5-5.1); SODIUM 125 mmol/l (137-146); TOTAL PROTEIN 7.8 g/dL (6.3-8.2)
[2019-03-17 12:01] VITALS: BP 119/56
[2019-03-17 15:20] VITALS: BP 120/53
[2019-03-17 19:35] VITALS: BP 102/56
[2019-03-17 23:40] VITALS: BP 106/57
[2019-03-18] VITALS (11 sets, daily range): BP systolic 117–137; BP diastolic 56–87
[2019-03-18 05:26] LABS: HEMATOCRIT 30.7 % (37.0-47.0); HEMOGLOBIN 10.3 g/dl (12.0-16.0); IMMATURE GRANULOCYTES 0.6 % (0.0-5.0); MEAN CELL VOLUME 101.3 fL CALC (80.0-100.0); MEAN CORPUSCULAR HGB CONC 33.6 g/L CALC (32.0-36.0); NEUT# 4.04 thou/uL (2.00-7.15); RED BLOOD COUNT 3.03 mill/uL (4.20-5.60); RED CELL DISTRI WIDTH 13.4 % (11.5-15.5)
[2019-03-18 05:58] LABS: ANION GAP 13 (6-22 (CALC)); BUN 17 mg/dL (8-23); BUN/CREATININE RATIO 21 (12-20 (CALC)); CARBON DIOXIDE 26 mmol/l (22-30); CHLORIDE 92 mmol/l (95-108); CREATININE 0.8 mg/dL (0.5-1.0); GFR > 60 ML/MIN (>=60 (CALC)); GFR FOR AFR.AMER. > 60 ML/MIN (>=60 (CALC)); POTASSIUM 4.5 mmol/l (3.5-5.1); SODIUM 127 mmol/l (137-146)
[2019-03-19 04:30] VITALS: BP 123/66
[2019-03-19 05:02] LABS: HEMATOCRIT 29.6 % (37.0-47.0); HEMOGLOBIN 9.8 g/dl (12.0-16.0); MEAN CELL VOLUME 102.4 fL CALC (80.0-100.0); MEAN CORPUSCULAR HGB 33.9 pG CALC (26.0-32.0); MEAN CORPUSCULAR HGB CONC 33.1 g/L CALC (32.0-36.0); RED BLOOD COUNT 2.89 mill/uL (4.20-5.60); RED CELL DISTRI WIDTH 13.5 % (11.5-15.5)
[2019-03-19 05:24] LABS: ANION GAP 11 (6-22 (CALC)); BUN 14 mg/dL (8-23); BUN/CREATININE RATIO 20 (12-20 (CALC)); CARBON DIOXIDE 25 mmol/l (22-30); CHLORIDE 100 mmol/l (95-108); CREATININE 0.7 mg/dL (0.5-1.0); GFR > 60 ML/MIN (>=60 (CALC)); GFR FOR AFR.AMER. > 60 ML/MIN (>=60 (CALC)); POTASSIUM 4.2 mmol/l (3.5-5.1); SODIUM 131 mmol/l (137-146)
[2019-03-19 08:30] VITALS: BP 126/56
[2019-03-19 11:00] VITALS: BP 123/58
[2019-03-19] MEDS ORDERED: OMEPRAZOLE DR40 MG VT (12:07)
[2019-03-19 15:16] VITALS: BP 113/47
[2019-03-19 19:30] VITALS: BP 135/62
== END 2019-03-19 20:45 | DRG 378 ==
LOC: ED 05:23 → ED-I 09:35 → ED 09:52 → MS2 09:53
PROVIDERS: Nurse Practitioner Family; ADMIT Internal Medicine; ATTEND Internal Medicine
PROC: 0DJ08ZZ Inspection of Upper Intestinal Tract, Via Natural or Artificial Opening Endoscopic (ICD-10-PCS; principal; 2019-03-18)
PROC: 0D20XUZ Change Feeding Device in Upper Intestinal Tract, External Approach (ICD-10-PCS; 2019-03-18)
DX: K25.4 Chronic or unspecified gastric ulcer with hemorrhage (principal); E87.1 Hypo-osmolality and hyponatremia; G23.1 Progressive supranuclear ophthalmoplegia [Steele-Richardson-Olszewski]; I10 Essential (primary) hypertension; G20 Parkinson's disease; F02.80 Dementia in other diseases classified elsewhere, unspecified severity, without behavioral disturbance, psychotic disturbance, mood disturbance, and anxiety; E78.5 Hyperlipidemia, unspecified; E03.9 Hypothyroidism, unspecified; M19.90 Unspecified osteoarthritis, unspecified site; F32.9 Major depressive disorder, single episode, unspecified; R13.10 Dysphagia, unspecified; Z93.1 Gastrostomy status; Z87.891 Personal history of nicotine dependence; Z74.01 Bed confinement status
CPT/HCPCS: Q9967; S0164

== ENCOUNTER 2019-08-18 09:08 | Inpatient (IN) | payer MEDICARE, OTHER ==
[~2019-08-18] VITALS: Ht 157.5 cm; Wt 79.0 kg
[~2019-08-18 09:08] MED LIST changes: +OMEPRAZOLE DR40 MG VT
--- NOTE | 2019-08-18 09:08 | NUR ---
PATIENT TO ROOM VIA EMS AND PHYSICIAN AT BEDSIDE FOR EVAL
[2019-08-18 09:46] LABS: IMMATURE GRANULOCYTES 0.7 % (0.0-5.0); MEAN CORPUSCULAR HGB 32.3 pG CALC (26.0-32.0); MEAN CORPUSCULAR HGB CONC 35.7 g/dL CAL (32.0-36.0); NEUT# 5.96 thou/uL (2.00-7.15); RED BLOOD COUNT 3.1 mill/uL (4.20-5.60); RED CELL DISTRI WIDTH 12.2 % (11.5-15.5)
--- NOTE | 2019-08-18 10:02 | NUR ---
spoke with pts abimael and updated on poc and testing . spouse states appreciation.
[2019-08-18 10:11] LABS: ACT PARTIAL THROMBO TIME 35.1 SECONDS (20.0-32.5); PROTHROMBIN TIME 10.6 SECONDS (9.0-12.5)
[2019-08-18 10:16] LABS: MEAN CELL VOLUME 90.3 fL CALC (80.0-100.0)
[2019-08-18 11:07] LABS: ALBUMIN 3.2 g/dL (3.2-5.0); ALKALINE PHOSPHATASE 102 u/l (38-126); BILIRUBIN, TOTAL 0.6 mg/dL (0.0-1.4); BUN 16 mg/dL (8-23); BUN/CREATININE RATIO 23 (12-20 (CALC)); CARBON DIOXIDE 29 mmol/l (22-30); CREATININE 0.7 mg/dL (0.5-1.0); ETHYL ALCOHOL 0 mg/dl (0-30); GFR > 60 ML/MIN (>=60 (CALC)); GFR FOR AFR.AMER. > 60 ML/MIN (>=60 (CALC)); LIPASE 193 u/l (23-300); MAGNESIUM 1.9 mg/dL (1.6-2.3); POTASSIUM 4.9 mmol/l (3.5-5.1); SGOT/AST 23 u/l (9-36); TOTAL PROTEIN 6.4 g/dL (6.3-8.2)
[2019-08-18 11:09] LABS: ANION GAP 12 (6-22 (CALC)); CHLORIDE 80 mmol/l (95-108); SODIUM 116 mmol/l (137-146)
--- NOTE | 2019-08-18 11:15 | NUR ---
STRAIGHT CATH OBTAINED CLOUDY YELLOW URINE. PT TOLERATED WELL. CONTINUES TO ROUSE ONLY TO PAINFUL STIMULI. VSS.
[2019-08-18 11:37] LABS: TSH, 3RD GENERATION 1.95 uIU/mL (0.47 - 4.68)
--- NOTE | 2019-08-18 12:18 | NUR ---
TO BEDSIDE TO AWAIT RETURN OF PT FROM XRAY
[2019-08-18] MEDS ORDERED: MELATONIN1 MG/ML VT (12:38)
[2019-08-18] MEDS ORDERED: ARTIFICIAL TEAR1 OU (12:39)
[2019-08-18] MEDS ORDERED: REFRESH (12:40)
[2019-08-18] MEDS ORDERED: HYDROCORTISONE1 % TOP (12:41)
[2019-08-18] MEDS ORDERED: MUCINEX FAST MA VT (12:43)
--- NOTE | 2019-08-18 13:47 | NUR ---
PT RESTING QUIETLY WITH RATTLING SOUND IN THROAT. ORAL SUCITON RETURNED NO MUCOUS, MUCOUS MEMBRANES DRY. MOUTH CARE RENEDERED
[2019-08-18] MEDS ORDERED: JEVITY 1.5 VT (14:02)
--- NOTE | 2019-08-18 14:04 | NUR ---
DR LOPEZ AT BEDSIDE TO ASSESS PT AND DISCUSS POC WITH HSBAND
--- NOTE | 2019-08-18 14:10 | NUR ---
P ASHLEYSPONDS WITH ONE WORD RESPONSES TO ONLY, CONTINUES WITH NOISY REPSIRATIONS O2 SAT 100 ON O2@2LPM ANC
[2019-08-18 14:16] LABS: URINE BILIRUBIN - DIPSTICK NEGATIVE (NEGATIVE); URINE BLOOD DIPSTICK MODERATE (NEGATIVE); URINE COLOR YELLOW; URINE GLUCOSE - DIPSTICK NEGATIVE (NEGATIVE); URINE KETONE NEGATIVE (NEGATIVE); URINE PROTEIN - DIPSTICK NEGATIVE (NEG-TRACE)
[2019-08-18 14:19] LABS: URINE LEUK ESTERASE LARGE (NEGATIVE); URINE NITRITE - DIPSTICK POSITIVE (Negative)
[2019-08-18 14:20] LABS: URINE BACTERIA MANY hpf; URINE SQUAMOUS EPITHELIAL CELL FEW EPI/hpf (0-FEW); URINE WBC 20-50 WBC/hpf (0-5)
--- NOTE | 2019-08-18 14:50 | NUR ---
PT TRANSPORTED TO [place] ON TELE IN NO DISTRESS. AT BEDSIDE.
[2019-08-18 15:00] VITALS: BP 115/60
[2019-08-18 19:20] VITALS: BP 162/74
--- NOTE | 2019-08-18 20:06 | NUR ---
PATIENT SLEEPING IN BED. NO DISTRESS NOTED. PATIENT NON VERBAL. SHIFT ASSESSMENT COMPLETE. RESPIRATIONS EVEN AND UNLABORED. PRODUCTIVE COUGH. PEG TUBE PATENT. RT UPPER DOUBLE LUMEN PICC PATENT. EDEMA IN RT ARM, ALEKSANDER SLEEVE IN PLACE. O2 @ 2L NASAL CANULA. WILL CONTINUE TO MONITOR.
--- NOTE | 2019-08-18 20:17 | NUR ---
PT ARRIVED TO THE FLOOR VIA STRETCHER AND TRANSFERRED TO BED WITH STAFF ASSIST. PT NONVERBAL AND GAVE ADMISSION INFORMATION. PT NOTED WITH WHEEZING AND CONGESTION IN UPPER LUNG BECERRA. HOB ELEVATED AND O2 IN PLACE AND O2 SAT 99-100% ON 2LNC. PT HAS PITTING EDEMA IN RIGTH ARM. DOUBLE LUMEN PICC LINE IN PLACE IN RIGHT UPPER EXTREMITY. PT HAS OPEN AREA CLUSTERED TO BACK OF LEFT THIGH AND AREA CLEANSE AND DRESSING APPLIED. REDNESS TO DANE AREA AND EXCORIATION TO BUTTOCKS. BARRIER CREAM APPLIED.WOODWINDS TEACHER CONSULTED FOR NEW ORDERS FOR JEVITY 1.5.
[2019-08-18 22:22] LABS: BUN 15 mg/dL (8-23); BUN/CREATININE RATIO 23 (12-20 (CALC)); CARBON DIOXIDE 29 mmol/l (22-30); CHLORIDE 82 mmol/l (95-108); CREATININE 0.7 mg/dL (0.5-1.0); GFR > 60 ML/MIN (>=60 (CALC)); GFR FOR AFR.AMER. > 60 ML/MIN (>=60 (CALC)); POTASSIUM 4.6 mmol/l (3.5-5.1)
[2019-08-18 22:29] LABS: ANION GAP 11 (6-22 (CALC)); SODIUM 117 mmol/l (137-146)
[2019-08-18 23:25] VITALS: BP 133/72
--- NOTE | 2019-08-19 00:29 | NUR ---
PATIENT RESTING EYES CLOSED. ASSISTED RECONDITIONER WITH WASHING PATIENT UP, CHANGING GOWN, AND REPOSITIONING PATIENT. PATIENT TOLERATED WELL. PATIENT GIVEN 8OZ JEVITY 1.5. MEDICATIONS GIVEN PER MAR. CONTINUE TO MONITOR.
[2019-08-19 04:00] VITALS: BP 152/78
--- NOTE | 2019-08-19 04:45 | NUR ---
PATIENT RESTING IN BED. ADMINISTERED MEDICATION PER MAR. NO DISTRESS NOTED. ASSISTED EXPLOSIVES OPERATOR WITH CHANGING AND REPOSITIONING PATIENT. WILL CONTINUE TO MONITOR.
[2019-08-19 04:55] LABS: HEMATOCRIT 26.2 % (37.0-47.0); HEMOGLOBIN 9.3 g/dl (12.0-16.0); MEAN CELL VOLUME 91.3 fL CALC (80.0-100.0); MEAN CORPUSCULAR HGB 32.4 pG CALC (26.0-32.0); MEAN CORPUSCULAR HGB CONC 35.5 g/dL CAL (32.0-36.0); RED BLOOD COUNT 2.87 mill/uL (4.20-5.60); RED CELL DISTRI WIDTH 12.1 % (11.5-15.5)
[2019-08-19 05:28] LABS: ALBUMIN 3.3 g/dL (3.2-5.0); ALKALINE PHOSPHATASE 93 u/l (38-126); BILIRUBIN, TOTAL 0.5 mg/dL (0.0-1.4); BUN 15 mg/dL (8-23); BUN/CREATININE RATIO 22 (12-20 (CALC)); CARBON DIOXIDE 29 mmol/l (22-30); CHLORIDE 84 mmol/l (95-108); CREATININE 0.7 mg/dL (0.5-1.0); GFR > 60 ML/MIN (>=60 (CALC)); GFR FOR AFR.AMER. > 60 ML/MIN (>=60 (CALC)); POTASSIUM 4.4 mmol/l (3.5-5.1); SGOT/AST 21 u/l (9-36); TOTAL PROTEIN 6.2 g/dL (6.3-8.2)
[2019-08-19 05:30] LABS: ANION GAP 10 (6-22 (CALC)); SODIUM 119 mmol/l (137-146)
[2019-08-19 11:26] VITALS: BP 144/77
--- NOTE | 2019-08-19 12:10 | NUR ---
CALLED DR. BUSTAMANTE OFFICE REGARDING CONSULTATION OF HYPONATREMIA. SPOKE TO DYAN GAVE INFORMATION REGARDING THIS PT. STATED SHE WILL GET THIS OUT TO HIM.
[2019-08-19 16:00] VITALS: BP 116/63
--- NOTE | 2019-08-19 18:34 | NUR ---
PT IN BED WITH HEAD OF BED ELEVATED. PT IS NOT VERBALLY RESPONDING AT TIMES AND GARBLES AT TIMES. SHE IS AROUSED TO VOICE. PT IS ENDENTULOUS. OXYGEN THERAPY IN PLACE AT 2LNC AND O2 SAT AT 97-99%. RHONCHI NOTED IN ALL LUNG IN UPPER LUNG BECERRA AND DIMINISHED IN LOWER LUNG BECERRA. REQUIRING SUCTIONING DURING THE SHIFT DUE TO CONGESTION. ABDOMEN IS DISTENDED AND SOFT. BOWEL SOUNDS ACTIVE IN UPPER AND LOWER QUADRANTS. PT HAD A LARGE BM THIS AM THAT WAS SOFT AND BROWN. PEG TUBE IN PLACE AND PLACEMENT CHECKED ALSO NOTED WITH YELLOWISH LIQUID. NO RESIDUAL NOTED. MEDS GIVEN VIA PEG TUBE AND TOLERATING WELL. PT HAS REDNESS NOTED TO GROIN AREA AND EXCORIATION TO BUTTOCKS. ALSO HAS A PRESSURE ULCER NOTED TO BUTTOCKS. MD IN AND MADE AWARE AND OK TO PLACE CLARK TO ASSISTIN HEALING. PT ALSO HAS CLUSTER OF AREAS TO BACK OF LEFT THIGH AND AREAS CLEANSED AND DRESSING APPLIED. MD IN AND GAVE ORDER TO ADMIISTE IV LASIX AND GIVEN PRESCRIBED. LABS WAS REVIEWED WITH AND DIRECTOR OF [facility]. PT HAS NEW CONSULT WITH DR. SUMMERS FOR HYPONATREMIA. CONSULT WAS CALLED IN. AT BEDSIDE. CONTINUES ON IV ABT THERAPY WITH NO ADVSRE SIDE EFFECTS NOTED.
[2019-08-19 19:08] VITALS: BP 122/71
--- NOTE | 2019-08-19 21:24 | NUR ---
PT RESTING IN BED, RESPIRATIONS SHALLOW ON O2 @ 2L VIA NC. LUNGS SOUND COARSE/DIMINISHED. PEDAL PULSES WEAK. PEG TUBE PLACEMENT CHECKED, NO RESIDUAL AT THIS TIME. SAFETY PRECAUTIONS IN PLACE. WILL CONTINUE TO MONITOR.
[2019-08-19 23:30] VITALS: BP 127/72
--- NOTE | 2019-08-20 00:35 | NUR ---
PT RESTING IN BED, HEAD ELIVATED, RESPIRATIONS SHALLOW ON O2 @ 2L VIA NC. PEG TUBE PLACEMENT CHECKED, I CAN OF JEVITY GIVEN BY GRAVITY, FOLLOWED BY 30CC FLUSH. SAFETY PRECAUTIONS IN PLACE. WILL CONTINUE TO MONITOR.
[2019-08-20 04:04] VITALS: BP 144/76
--- NOTE | 2019-08-20 04:21 | NUR ---
PT RESTING IN BED, RESPIRATIONS SHALLOW ON O2 @ 2L VIA NC. TELE IN PLACE. CLARK DRAINING TO GRAVITY. SAFETY PRECAUTIONS IN PLACE, WILL CONTINUE TO MONITOR.
[2019-08-20 05:39] LABS: HEMATOCRIT 26.6 % (37.0-47.0); HEMOGLOBIN 9.1 g/dl (12.0-16.0); MEAN CORPUSCULAR HGB 31.8 pG CALC (26.0-32.0); MEAN CORPUSCULAR HGB CONC 34.2 g/dL CAL (32.0-36.0); RED BLOOD COUNT 2.86 mill/uL (4.20-5.60); RED CELL DISTRI WIDTH 12.1 % (11.5-15.5)
[2019-08-20 06:05] LABS: ALKALINE PHOSPHATASE 83 u/l (38-126); ANION GAP 9 (6-22 (CALC)); BILIRUBIN, TOTAL 0.5 mg/dL (0.0-1.4); BUN 25 mg/dL (8-23); BUN/CREATININE RATIO 38 (12-20 (CALC)); CARBON DIOXIDE 30 mmol/l (22-30); CHLORIDE 88 mmol/l (95-108); CREATININE 0.7 mg/dL (0.5-1.0); GFR > 60 ML/MIN (>=60 (CALC)); GFR FOR AFR.AMER. > 60 ML/MIN (>=60 (CALC)); POTASSIUM 4.1 mmol/l (3.5-5.1); SGOT/AST 19 u/l (9-36); SODIUM 122 mmol/l (137-146); TOTAL PROTEIN 5.9 g/dL (6.3-8.2)
[2019-08-20 07:42] VITALS: BP 143/70
--- NOTE | 2019-08-20 07:42 | NUR ---
PT SLEEPING IN BED. PT OPENS EYES WHEN NAME IS CALLED, OTHERWISE NON VERBAL. CLARK CATH IN PLACE DRAINING VIA GRAVITY. SUCTION AT BEDSIDE. PEG TUBE IN PLACE. O2 VIA NC @ 2L IN PLACE. ASSESSMENT COMPLETED. CONTINUE TO MONITOR.
--- NOTE | 2019-08-20 10:40 | NUR ---
PREPARED FOODS ASSOCIATE AT BEDSIDE DISCUSSING POC WITH MYSELF AND DR LR. PT TO REC 100 ML OF WATER AFTER EACH FEEDING TO COMPLY WITH FLUID RESTRICTION. PREPARED FOODS ASSOCIATE MADE AWARE THAT 30 MLS OF WATER ARE BEING USED TO FLUSH PEG TUBE BEFORE AND AFTER MEDS, PER PREPARED FOODS ASSOCIATE THAT IS OKAY. WEIGHT TO BE ADJUSTED , PER PREPARED FOODS ASSOCIATE WEIGHT NO ACCURATE. BED SCALE USED TO OBTAIN WEIGHT, WEIGHT CURRENTLY 174.1 LBS AND HEIGHT 5'2. INFORMATION TO BE ADJUSTED IN [employer].
[2019-08-20 11:26] VITALS: BP 125/68
--- NOTE | 2019-08-20 12:00 | NUR ---
JEVITY FEEDING GIVEN. AT BEDSIDE. SUCTION PREFORMED.
[2019-08-20 15:30] VITALS: BP 131/68
[2019-08-20 19:00] VITALS: BP 131/62
--- NOTE | 2019-08-20 20:35 | NUR ---
PT RESTING IN BED WITH EYES CLOSED, RESPIRATIONS SHALLOW ON O2 @ 2L VIA NC, LUNGS SOUND COARSE/DIMINISHED. PEDAL PULSES WEAK. CLARK DRAINING TO GRAVITY. PEG TUBE PLACEMENT ASSESSED. HEAD OF THE BED ELIVATED. SAFETY PRECAUTIONS IN PLACE. WILL CONTINUE TO MONITOR.
--- NOTE | 2019-08-21 00:10 | NUR ---
PT RESTING IN BED, RESPIRATIONS SHALLOW ON O2 @ 2L VIA NC. NO S/S OF DISTRESS AT THIS TIME. SAFETY PRECAUTIONSIN PLACE. WILL CONTINUE TO MONITOR.
--- NOTE | 2019-08-21 04:07 | NUR ---
PT RSTING IN BED, HEAD OF THE BED ELIVATED. RESPIRATIONS SHALLOW ON O2 @ 2L VIA NC. SAFETY PRECAUTIONSIN PLACE. WILL CONTINUE TO MONITOR.
[2019-08-21 04:59] VITALS: BP 143/76
[2019-08-21 05:33] LABS: ALBUMIN 2.7 g/dL (3.2-5.0); BUN 27 mg/dL (8-23); CARBON DIOXIDE 29 mmol/l (22-30); CHLORIDE 94 mmol/l (95-108); CREATININE 0.6 mg/dL (0.5-1.0); GFR > 60 ML/MIN (>=60 (CALC)); GFR FOR AFR.AMER. > 60 ML/MIN (>=60 (CALC)); POTASSIUM 3.9 mmol/l (3.5-5.1); SODIUM 127 mmol/l (137-146)
[2019-08-21 07:55] VITALS: BP 120/50
--- NOTE | 2019-08-21 07:55 | NUR ---
ASSESSMENT IS COMPLTED: IV SITE IS FREE FROM REDNESS OR EDEMA.HR IS REG,PULSES ARE STRONG X4 ABD IS SOFT WITH ACTIVE BS. PEG TUBE IS IN PLACE. CLARK DRAINING YELLOW URINE. BREATH SOUNDS ARE CLEAR AND AUDIBLE WHEEZING ON THE MID CHEST. CONTINUE TO OBSERVE AND MONITOR.
--- NOTE | 2019-08-21 12:15 | NUR ---
PT IS RESTING IN BED WITH NO DISTRESS NTOED. HAS BEEN REPOSITIONED BY ELEVATOR OPERATOR SERVICE'S. IV SITE IS FREE FROM REDNESS OR EDEMA. CONTINUE TO OSBERVE AND MONITOR.
[2019-08-21 15:00] VITALS: BP 127/74
--- NOTE | 2019-08-21 16:00 | NUR ---
PT IS TOLERATING FEED WELL. NO DISTRESS NOTED. IV SITE IS FREE FROM REDNESS OR EDEMA. CONTINUE TO OBSERVE AND MONITOR.
[2019-08-21 19:00] VITALS: BP 127/43
--- NOTE | 2019-08-21 20:00 | NUR ---
PT RESTING IN BED, WITH EYES CLOSED, RESPIRATIONS SHALLOW ON O2 @ 2L VIA NC. PEDAL PULSES WEAK. PEG TUBE PLACEMENT ASSESSED. CLARK DRAINING TO GRAVITY. SAFETY PRECAUTIONS IN PLACE. WILL CONTINUE TO MONTIOR.
--- NOTE | 2019-08-22 00:15 | NUR ---
PT RESTING IN BED. PEG TUBE PLACEMENT ASSESSED, I CAN OF JEVITY GIVEN BY GRAVITY, FOLLOWED BY 100CC FLUSH, PT TOLERATED WELL. SAFETY PRECAUTIONSIN PLACE. WILL CONTINUE TO MONITOR.
[2019-08-22 03:10] VITALS: BP 156/87
--- NOTE | 2019-08-22 04:10 | NUR ---
PT R HAND SWOLLEN, PT RING IS CUTTING IN TO FINGER, LOTIONS APPLIED TO FINGER TO GET THE RING OFF, RING PLACED IN A BELONGINGS BAG BY SUPERVISER. SAFETY PRECAUTIONSIN PLACE. WILL CONTINUE TO MONITOR.
[2019-08-22 07:45] VITALS: BP 134/64
--- NOTE | 2019-08-22 07:45 | NUR ---
ASSESSMENT IS COMPLTED: IV SITE IS FREE FROM REDNESS OR EDEMA. HR IS REG,PULSES ARE WEAK, ABD IS SOFT WITH ACTIVE BS. BREATH SOUNDS ARE WHEEZING IN UPPER AND CLEAR AND DIMINISHED. PEG TUBE IN PLACE. CLARK IN PLACE.
--- NOTE | 2019-08-22 12:00 | NUR ---
PT IS RELAXING IN BED WITH NO DISTRESS NOTED. IV SITE IS FREE FROM REDNESS OR EDEMA.
--- NOTE | 2019-08-22 12:29 | NUR ---
LABS DRAWN AND SENT FOR TESTING
[2019-08-22 12:56] LABS: ANION GAP 8 (6-22 (CALC)); BUN 21 mg/dL (8-23); BUN/CREATININE RATIO 35 (12-20 (CALC)); CARBON DIOXIDE 28 mmol/l (22-30); CHLORIDE 97 mmol/l (95-108); CREATININE 0.6 mg/dL (0.5-1.0); GFR > 60 ML/MIN (>=60 (CALC)); GFR FOR AFR.AMER. > 60 ML/MIN (>=60 (CALC)); POTASSIUM 3.5 mmol/l (3.5-5.1); SODIUM 129 mmol/l (137-146)
[2019-08-22 14:40] VITALS: BP 136/58
--- NOTE | 2019-08-22 15:44 | NUR ---
REPORT RECEIVED FROM KATIE. PT IS SLEEPING IN BED WITH NO S/S OF DISTRESS NOTED. CALL LIGHT IN REACH.
[2019-08-22 18:51] VITALS: BP 124/63
--- NOTE | 2019-08-22 19:36 | NUR ---
REPORT FROM GREGORY CLAIRE. PT NOTED RESTING IN BED. PT RESPONSIVE TO SPEECH, OPENS EYES, ATTEMPTING TO TALK. NO APPARENT DISTRESS NOTED. PEGTUBE NOTED. CLARK PATENT DRAINING TO GRAVITY. IV SITE APPEARS HEALTHY WITH IVF INFUSING. CALL LIGHT WITHIN REACH. WILL CONTINUE TO MONITOR.
--- NOTE | 2019-08-22 20:18 | NUR ---
AIR MATTRESS DELIVERED.
--- NOTE | 2019-08-22 22:18 | NUR ---
COMPLETE BED BATH AND LINEN CHANGE. PT TRANSFER TO AIR MATTRESS AND REPOSITIONED WITH PILLOWS. PT TOLATERATED WELL. CALL LIGHT WITHIN REACH. WILL CONTINUE TO MONITOR.
--- NOTE | 2019-08-23 00:02 | NUR ---
PT HEAD ELEVATED TO 45 DEGREES. PEG TUBE PLACEMENT VERIFIED. NO RESIDUAL NOTED. FEEDING ADMINISTERED VIA GRAVITY BOLUS. PT TOLERATED WELL. NO APPARENT DISTRESS NOTED. CALL LIGHT WITHIN REACH. WILL CONTINUE TO MONITOR.
[2019-08-23 03:30] VITALS: BP 144/78
--- NOTE | 2019-08-23 04:03 | NUR ---
PT RESTING IN BED WITH EYES CLOSED. NO APPARENT DISTRESS NOTED. RESPIRATIONS EVEN AND UNLABORED. CALL LIGHT WITHIN REACH. WILL CONTINUE TO MONITOR.
[2019-08-23 07:44] VITALS: BP 118/53
--- NOTE | 2019-08-23 07:58 | NUR ---
SHIFT CHANGE REPORT, PT AWAKE, NON-VERBAL, NO SIGN DISCOMFORT, IVF INFUSING, CLARK IN PLACE WITH ABER URINE, ALL NEEDS ANTICIPATED AND ADDRESSED, ORAL CARE GIVEN AT THIS TIME, BED IN LOWEST POSTIION AND CALL PERRY IN REACH.
--- NOTE | 2019-08-23 12:35 | NUR ---
SPOUSE AT BEDSIDE HOLDING PT'S HAND. PT REPOSITIONED AND FED, ALL NEEDS ADDRESSED.
[2019-08-23 15:00] VITALS: BP 117/61
--- NOTE | 2019-08-23 15:38 | NUR ---
REPOSITIONED, ORAL CARE GIVEN, ALL NEEDS ADDRESSED.
[2019-08-23 19:05] VITALS: BP 138/70
--- NOTE | 2019-08-23 20:15 | NUR ---
PT EYES ARE CLOSED. FLUIDS RUNNING/SITE APPEARS HEALTHY. NO S/O DISTRESS. AIR MATRESS IS ON AND ADJUSTING EXPECTED. WILL CONTINUE TO MONITOR AND FEED/MEDICATE ORDERS PROVIDE.
--- NOTE | 2019-08-23 20:40 | NUR ---
AIDES ARE IN CLEANING PT AND PROVIDED BEDBATH. DRESSING TO PEG TUBE CDI, IV SITE TO STEPHANIE APPEARS HEALTHY AND NS@50 RUNNING TO SITE. PT APPEARS GARGLING, SUCTIONED FOR AIR CLEARANCE, WILL CONTINUE TO MONITOR CLOSELY.
--- NOTE | 2019-08-23 23:19 | NUR ---
PT PEG-TUBE PLACEMENT CONFIRMED WITH AUSCULTATION AND MEDICATED ORDERS PROVIDE AND PT FEED PROVIDED VIA PEG-TUBE. PT REPOSITIONED FOR PRESSURE CARE. NO S/O DISTRESS NOTED AT THIS TIME. LIGHTS ARE ON LOW AND TV IS ON.
[2019-08-24 03:00] VITALS: BP 116/61
--- NOTE | 2019-08-24 05:33 | NUR ---
PT MEDICATED AND FED VIA PEG TUBE. TUBE PLACEMENT AUSCULTATED AND RESIDUAL OF ZERO CONFIRMED PRIOR TO FEED. PT OPENED EYES AND SPOKE "YES" TO ME WHEN ASKED A QUESTION. PT SUCTIONED PRIOR TO FEED FOR AIR CLEARANCE, BREATHING IS GARGLED. CLARK CATHETER DRAINING TO GRAVITY DARK YELLOW URINE. AIR MATTRESS IN PLACE FOR PT COMFORT AND PRESSURE CARE. PT REPOSITIONED.
[2019-08-24 05:53] LABS: ANION GAP 6 (6-22 (CALC)); BUN 22 mg/dL (8-23); BUN/CREATININE RATIO 36 (12-20 (CALC)); CARBON DIOXIDE 31 mmol/l (22-30); CHLORIDE 98 mmol/l (95-108); CREATININE 0.6 mg/dL (0.5-1.0); GFR > 60 ML/MIN (>=60 (CALC)); GFR FOR AFR.AMER. > 60 ML/MIN (>=60 (CALC)); POTASSIUM 4.1 mmol/l (3.5-5.1); SODIUM 132 mmol/l (137-146)
--- NOTE | 2019-08-24 08:00 | NUR ---
BEDSIDE REPORT RECEIVED FROM DAKOTAH JACOBSON. PT SITTING UPRIGHT IN BED. DENIES PAIN AT THIS TIME. PLAN OF CARE DISCUSSED. PT. ANSWERS YES OR NO QUESTIONS CLEARLY. PT. SUCTIONED VIA YANKAUER R/T EXCESS ORAL SECRETIONS. O2 @ 2L VIA NC. FLEY DRANING CLEAR DARK YELLOW URINE, SECURED WITH LEG STRAP. STEPHANIE PICC LINE IN PLACE, INFUSING NS @ 50. CALL LIGHT REVIEWED AND IN REACH. FREQUENT ROUNDING AND Q2 HR TURN IN PLACE. AIR MATTRESS ON BED.
[2019-08-24 08:12] VITALS: BP 137/55
--- NOTE | 2019-08-24 10:32 | NUR ---
DR. LOPEZ IN TO SEE PT. DISCHARGE HOME TO [facility] DISCUSSED AND AGREED UPON.
[2019-08-24] MEDS ORDERED: SOD CHLORIDE1 GM OD (10:43)
[2019-08-24] MEDS ORDERED: TRAMADOL HCL50 MG PO (10:43)
[2019-08-24] MEDS ORDERED: NYSTATIN100000 UN1 TOP (10:43)
--- NOTE | 2019-08-24 12:00 | NUR ---
AT BEDSIDE. PT. MAKING EYE CONTACT, BUT NOT RESPONDING VERBALLY AT THIS TIME. PEG TUBE RESIDUAL CHECKED AT THIS TIME, NONE. JEVITY 1.5 MAGGIE GIVEN VIA PEG TUBE. FLUSHED WITH 180 CC WATER. PT SITTING UPRIGHT IN BED. TOLERATED FEEDING WELL. UPDATED ABOUT DISCHARGE AND TRANSFER TO [facility]. STATES UNDERSTANDING.
--- NOTE | 2019-08-24 14:17 | NUR ---
CLARK CATHETER AND STEPHANIE PICC LINE REMOVED PER DR. LOPEZ. pRESSURE HELD TO PICC SITE PER POLICY, GAUZE/TRANSPARENT DRESSING APPLIED. NO SIGNS OF BLEEDING. PICC LINE 32 CM IN LENGTH. REPORT GIVEN TO KASSIE GREEN AT [facility]. 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
--- NOTE | 2019-08-24 14:40 | NUR ---
Discharge instructions given. Patient verbalizes understanding of same. Discharged in stable condition via Wheelchair to [facility] with [facility]. All belongings sent with pt.
--- NOTE | 2019-08-24 19:07 | NUR ---
called josue butt at spoke to tara was given confirmation number [id number].
== END 2019-08-24 14:40 | DRG 643 ==
LOC: ED 09:08 → ED-I 11:20 → ED 11:33 → MS2 11:34 → ED-I 11:34 → MS2 13:27
PROVIDERS: Internal Medicine Nephrology; Nurse Practitioner Family; ADMIT Internal Medicine; ATTEND Internal Medicine
PROC: 02HV33Z Insertion of Infusion Device into Superior Vena Cava, Percutaneous Approach (ICD-10-PCS; principal; 2019-08-18)
PROC: B518ZZA Fluoroscopy of Superior Vena Cava, Guidance (ICD-10-PCS; 2019-08-18)
DX: E22.2 Syndrome of inappropriate secretion of antidiuretic hormone (principal); G93.41 Metabolic encephalopathy; R64 Cachexia; N39.0 Urinary tract infection, site not specified; G23.1 Progressive supranuclear ophthalmoplegia [Steele-Richardson-Olszewski]; G20 Parkinson's disease; I10 Essential (primary) hypertension; E78.5 Hyperlipidemia, unspecified; E03.9 Hypothyroidism, unspecified; R62.7 Adult failure to thrive; S30.811A Abrasion of abdominal wall, initial encounter; S30.810A Abrasion of lower back and pelvis, initial encounter; X58.XXXA Exposure to other specified factors, initial encounter; Z93.1 Gastrostomy status; B96.1 Klebsiella pneumoniae [K. pneumoniae] as the cause of diseases classified elsewhere; D63.8 Anemia in other chronic diseases classified elsewhere; L30.4 Erythema intertrigo; Z66 Do not resuscitate; Z87.440 Personal history of urinary (tract) infections; Z68.31 Body mass index [BMI] 31.0-31.9, adult; Z87.891 Personal history of nicotine dependence; Z74.01 Bed confinement status; Z99.81 Dependence on supplemental oxygen; Z20.828 Contact with and (suspected) exposure to other viral communicable diseases
CPT/HCPCS: J0692

== ENCOUNTER 2019-09-15 13:50 | Inpatient (IN) | payer MEDICARE, OTHER ==
[~2019-09-15] VITALS: Ht 157.5 cm; Wt 73.0 kg
[~2019-09-15 13:50] MED LIST changes: +ARTIFICIAL TEAR1 OU; +HYDROCORTISONE1 % TOP; +JEVITY 1.5 VT; +MELATONIN1 MG/ML VT; +MUCINEX FAST MA VT; +REFRESH; +SOD CHLORIDE1 GM OD
--- NOTE | 2019-09-15 13:50 | NUR ---
PATIENT TO ROOM VIA EMS STRETCHER.
--- NOTE | 2019-09-15 14:30 | NUR ---
PT PRESENTS BEING RESPONSIVE OCCATIONALLY TO VERBAL STIMULI. PT IS LAYING WITH MOUTH GAPING OPEN AND IS GAZING TO THE CEILING. PT OCCATIONALLY ANSWERS EITHER YES OR OK. PT CANNOT SAY NAME, PLACE OR TIME. STATES THAT SHE HAS A BED ULCER IN THE [place] AREA. PT IS UNABLE TO MOVE HERSELF, PT IS IN A WEAK AND STIFF POSITION AND SHE NEEDS TO BE MOVED FOR EVERYTHING. PT CURRENTLY HAS A CLARK, ADULT BRIEF AND COMPRESSION STOCKINGS FOR ARMS. AOX4. AFIBRILE. VITALS WNL
[2019-09-15 15:07] LABS: HEMOGLOBIN 9.5 g/dl (12.0-16.0); IMMATURE GRANULOCYTES 0.6 % (0.0-5.0); MEAN CELL VOLUME 95.2 fL CALC (80.0-100.0); MEAN CORPUSCULAR HGB 30.2 pG CALC (26.0-32.0); MEAN CORPUSCULAR HGB CONC 31.7 g/dL CAL (32.0-36.0); NEUT# 5.92 thou/uL (2.00-7.15); RED BLOOD COUNT 3.15 mill/uL (4.20-5.60)
--- NOTE | 2019-09-15 15:30 | NUR ---
PT CONTINUES UNCHANGED. UPDATED ON PLAN OF CARE, CALL LIGHT WITHIN REACH
[2019-09-15 15:38] LABS: ALKALINE PHOSPHATASE 105 u/l (38-126); AMYLASE 60 u/l (30-110); BUN 17 mg/dL (8-23); BUN/CREATININE RATIO 27 (12-20 (CALC)); CARBON DIOXIDE 31 mmol/l (22-30); CHLORIDE 92 mmol/l (95-108); CREATININE 0.7 mg/dL (0.5-1.0); GFR > 60 ML/MIN (>=60 (CALC)); GFR FOR AFR.AMER. > 60 ML/MIN (>=60 (CALC)); LIPASE 112 u/l (23-300); MAGNESIUM 2.2 mg/dL (1.6-2.3); SODIUM 128 mmol/l (137-146)
[2019-09-15 15:39] LABS: ALBUMIN 3.5 g/dL (3.2-5.0); ANION GAP 9 (6-22 (CALC)); BILIRUBIN, TOTAL 0.9 mg/dL (0.0-1.4); POTASSIUM 4.1 mmol/l (3.5-5.1); SGOT/AST 60 u/l (9-36); TOTAL PROTEIN 7.4 g/dL (6.3-8.2)
[2019-09-15 15:58] LABS: ACT PARTIAL THROMBO TIME 33.3 SECONDS (20.0-32.5); INTERNATIONAL NORMALIZED RATIO 1.1 RATIO (0.7-1.3); PROTHROMBIN TIME 10.8 SECONDS (9.0-12.5)
--- NOTE | 2019-09-15 16:30 | NUR ---
PT ULCER IS EXAMINED WITH MD AT BEDSIDE. ASSISTED MD TO PLACE PT ON SIDE AND A 3.5CM X 3 CM STAGE THREE BED SORE WITH FOUL SMELL AND BROUND SLOTHING. SURRONDING SKIN ABOUT 1CM SURROUNDING WOUND IS RED AND BEYOND THAT IS HEALTHY. CULTURES TAKEN
[2019-09-15 17:28] LABS: URINE BILIRUBIN - DIPSTICK NEGATIVE (NEGATIVE); URINE BLOOD DIPSTICK TRACE-INTACT (NEGATIVE); URINE COLOR YELLOW; URINE GLUCOSE - DIPSTICK NEGATIVE (NEGATIVE); URINE KETONE NEGATIVE (NEGATIVE); URINE NITRITE - DIPSTICK NEGATIVE (Negative); URINE PROTEIN - DIPSTICK NEGATIVE (NEG-TRACE); URINE SPECIFIC GRAVITY 1.015
--- NOTE | 2019-09-15 17:30 | NUR ---
PT RESTING ON STREATCHER AND REMAINS UNCHANGED. NOTIFIED OF PENDING ADMISSION
[2019-09-15 17:36] LABS: URINE LEUK ESTERASE LARGE (NEGATIVE)
[2019-09-15 17:41] LABS: URINE SQUAMOUS EPITHELIAL CELL FEW EPI/hpf (0-FEW); URINE WBC 20-50 WBC/hpf (0-5)
[2019-09-15 17:42] LABS: URINE AMORPH SEDIMENT MANY hpf (NONE-FEW); URINE BACTERIA MODERATE hpf
[2019-09-15 18:30] VITALS: BP 139/80
--- NOTE | 2019-09-15 19:00 | NUR ---
GAVE REPORT TO BIJAL
--- NOTE | 2019-09-15 19:10 | NUR ---
PT TRANSPORTED TO [facility] STABLE AND IN NO DISTRESS. PT CARE ASSUMED TO BRENDAN. Admission Note Report Given to: Transported by: Wheelchair X Stretcher Transported with: X Nurse Transporter X Patent IV X O2 X Manager Mental Health Location: ICU X MS2
--- NOTE | 2019-09-15 19:30 | NUR ---
RECEIVED REPORT FROM NURSE MUNROE PATIENT TRANSPORTED VIA BED, HOOKED TO O2 @ 2LPM VIA NC, ADMITTED FOR AMS AND DECUBITUS ULCER, PATIENT SETTLED IN BED, BED ALARM IN PLACE.
--- NOTE | 2019-09-15 20:20 | NUR ---
CALLED DR. DOMINGUEZ ABOUT ORDERS TO CONTINUE TUBE FEED, WITH ORDERS MADE.
--- NOTE | 2019-09-15 22:30 | NUR ---
PATIENT ALERT TO SELF ONLY SPEECH GARBLED WITH SALINE LOCK ON LFA G20 PATENT FLUSHES WELL LBM 09/13, WITH FLOEY CATHETER DR GUPTA ASHLEY COLORED URINE, PEG TUBE CHECKED FOR PATENCY, PLACED ON SEMI FOWLERS POSITION, CALL LIGHT AT REACH.
--- NOTE | 2019-09-16 | NUR ---
PATIENT RESTING IN BED, REMAINS ON O2 @ 2LPM VIA NC BREATHING UNLABORED CALL LIGHT AT REACH.
[2019-09-16 04:10] VITALS: BP 130/72
--- NOTE | 2019-09-16 04:13 | NUR ---
PATIENT SLEEPING WITH EYES CLOSED, BREATHING EVEN UNLABOREED CALL LIGHT AT REACH.
--- NOTE | 2019-09-16 06:03 | NUR ---
DUE TUBE FEED DONE TOLERATED, NO RESIDUAL, PATIENT MAINTAINE ON HIGH FOWLERS.
[2019-09-16 08:05] VITALS: BP 143/77
--- NOTE | 2019-09-16 08:05 | NUR ---
PT LAYING IN BED. A&O TO VERBAL QUES, GARBLED SPEECH. PEG TUBE IN PLACE. SACRAL STAGE III WOUND NOTED, SEE CHART FOR PHOTO. AQUACELL DRESSING IN PLACE. MORNING CARE PROVIDED. CLARK DRAINING VIA GRAVITY WITH CLOUDY URINE NOTED. ASSESSMENT COMPLETED. DISCUSSED POC, REINFORCEMENT NEEDED. CALL LIGHT IN REACH. CONTINUE TO MONITOR.
--- NOTE | 2019-09-16 10:24 | NUR ---
INFORMED CONSENT FOR SURGICAL WOUND DEBRIDEMENT SIGNED BY JORDON
--- NOTE | 2019-09-16 12:10 | NUR ---
FEEDING COMPLETED, PT TOLERATED WELL. NO RISIDUAL
[2019-09-16 17:53] VITALS: BP 127/49
--- NOTE | 2019-09-16 18:10 | NUR ---
FEEDING GIVEN TO PT. PT TOLERATED WELL, NO RISIDUAL NOTED.
[2019-09-16 19:24] VITALS: BP 138/76
--- NOTE | 2019-09-16 20:30 | NUR ---
PT REPOSITIONED, TOLERATED WELL. NO S/O DISTRESS, PT WAS NON-VERBAL.
[2019-09-17] VITALS (10 sets, daily range): BP systolic 101–134; BP diastolic 43–76
--- NOTE | 2019-09-17 00:33 | NUR ---
TUBE PLACEMENT COMFIRMED AND FEED PROVIDED 1.5CAL JEVITY X1 CAN. HOB IS ELEVATED @45, PT CHECKED FOR STOOL OUTPUT/INCONTIENT, AIDE IN W/PT NOW CLEANING AND PRVOIDING BEDBATH. PT TOLERATED FEEDING WELL. DRESSING PLACED AROUND PEG TUBE
--- NOTE | 2019-09-17 00:40 | NUR ---
BED BATH COMPLETE, PT POSITIONED ON HER LEFT SIDE W/HOB @45 DUE TO RECENT FEEDING. PT WAS CLEANED OF INCONTINENT STOOL, BARRIER CREAM PLACED TO GROIN AREA. ANTIBIOTIC THERAPY ADMINISTERED TO PERIPHERAL SITE IN LFA/SITE APPEARS HEALTHY.
--- NOTE | 2019-09-17 04:49 | NUR ---
AM MEDICATIONS HELD DUE TO NPO ORDERS. AM PEG TUBE FEEDING WILL ALSO BE HELD. PT HAS BEEN REPOSITIONED FOR PRESSURE ULCERS.
[2019-09-17 05:36] LABS: HEMATOCRIT 26.7 % (37.0-47.0); HEMOGLOBIN 8.3 g/dl (12.0-16.0); MEAN CORPUSCULAR HGB 29.9 pG CALC (26.0-32.0); MEAN CORPUSCULAR HGB CONC 31.1 g/dL CAL (32.0-36.0); RED BLOOD COUNT 2.78 mill/uL (4.20-5.60); RED CELL DISTRI WIDTH 14.1 % (11.5-15.5)
[2019-09-17 05:54] LABS: ALKALINE PHOSPHATASE 91 u/l (38-126); ANION GAP 8 (6-22 (CALC)); BILIRUBIN, TOTAL 0.6 mg/dL (0.0-1.4); BUN 19 mg/dL (8-23); BUN/CREATININE RATIO 25 (12-20 (CALC)); CARBON DIOXIDE 31 mmol/l (22-30); CHLORIDE 96 mmol/l (95-108); CREATININE 0.8 mg/dL (0.5-1.0); GFR > 60 ML/MIN (>=60 (CALC)); GFR FOR AFR.AMER. > 60 ML/MIN (>=60 (CALC)); POTASSIUM 3.6 mmol/l (3.5-5.1); SGOT/AST 38 u/l (9-36); SODIUM 132 mmol/l (137-146)
[2019-09-17 06:01] LABS: ALBUMIN 2.7 g/dL (3.2-5.0)
--- NOTE | 2019-09-17 08:00 | NUR ---
PT SEEN AWAKE, EYES OPEN, MINIMAL INTERACTION PER DEBILITATION. LUNGS CLEAR, 2 LPM. NO DISTRESS. PT TO SURGERY THIS MORNING FOR DEBRIDEMENT OF COCCYX WOUND.
--- NOTE | 2019-09-17 08:07 | NUR ---
PRELIMINARY BLOOD CULTURE RESULTS CALLED TO . 1/ VIALS GROWING GRAM (+) COCCI. NO NEW ORDERS.
--- NOTE | 2019-09-17 13:00 | NUR ---
PT RETURNS FROM SURGERY, IS AWAKE AND LOOKING AHEAD PER HER USUAL. DRESSING TO COCCYX CDI. NOON TUBE FEEDING PROVIDED ALONG WITH MISSED MEDS FROM EARLIER. PT DOES NOT APPEAR TO BE UNCOMFORTABLE. IS AT BEDSIDE.
--- NOTE | 2019-09-17 16:19 | NUR ---
PT TURNED Q2H FROM LEFT TO RIGHT OR RIGHT TO LEFT, NOT LEFT IN MIDDLE PER COCCYX WOUND. HAS BEEN AT BEDSIDE, PROVIDES SUPPORT.
--- NOTE | 2019-09-17 20:12 | NUR ---
PT MEDICATED AND FEED PROVIDED. PT TOLERATED WELL.
--- NOTE | 2019-09-18 00:45 | NUR ---
PT FEEDING ADMINISTERED, HOB @45. PT TOLERATED WELL. PT REPOSITIONED W/PILLOWS FOR PRESSURE RELIEF AT THIS TIME.
[2019-09-18 04:37] VITALS: BP 143/80
--- NOTE | 2019-09-18 05:25 | NUR ---
PT PROVIDED BEDBATH AND BEDDING CHANGED. DRESSING TO COCCYX SOILD BY STOOL, DRESSING CHANGED WET TO DRY PACKED AND ABD COVERING. PICTURE TAKEN AT THIS TIME AND PLACED IN CHART.
--- NOTE | 2019-09-18 06:31 | NUR ---
PT FEED TOLERATED WELL, 1 CAN 1.5JEVITY HOB@45, 120ML WATER FLUSH PER ORDERS.
--- NOTE | 2019-09-18 07:45 | NUR ---
REPORT RECEIVED FROM DAKOTAH JACOBSON. PT RESTING IN BED ON RIGHT SIDE POSITIONED WITH PILLOWS; ALERT AND ORIENTED. DENIES PAIN. RESPIRATIONS EVEN AND UNLABORED ON OXYGEN 2L VIA NC. VSS. DRESSING TO COCCYX CDI; HR IRREGULAR; GENERALIZED EDEMA; 2+ TO BLE; LARGE BLISTER TO POSTERIOR LEFT KNEE WHERE PT KEEPS LEG IN BENT POSITION. CLARK DRAINING CLOUDY ASHLEY URINE. SAFETY MEAURES IN PLACE. CALL LIGHT WITHIN REACH.
[2019-09-18 07:47] VITALS: BP 138/83
--- NOTE | 2019-09-18 08:02 | NUR ---
DR. DOMINGUEZ AT BEDSIDE. NEW ORDER RECEIVED FOR AIRMATTRESS AND ZINC OXIDE TO BLISTER.
--- NOTE | 2019-09-18 09:30 | NUR ---
PEG TUBE PLACEMENT VERIFIED WITH AUSCULTATION OF AIR AND ASPIRATION OF GASTRIC CONTENT; MEDS ADMINISTERED VIA PEG TUBE; PT REPOSITIONED INTO HIGH FOWLERS AND TOLERATED WELL. MERREM INFUSING AT THIS TIME; IV SITE APPEARS HEALTHY AND FLUSHES.
[2019-09-18 10:30] VITALS: BP 109/49
--- NOTE | 2019-09-18 11:29 | NUR ---
DR. BARLOW AT BEDSIDE FOR EVAL OF WOUND. NEW WOUND CARE ORDERS IN PLACE.
--- NOTE | 2019-09-18 12:56 | NUR ---
NEW DRESSING CHANGES ORDERS IN PLACE PER DR. BARLOW AFTER REVIEWING PT CHART AND LABS. LUNCH PEG TUBE FEEDING COMPLETE; 2 CANS OF JEVITY 1.5 PER RECOMMENDATION OF DIETITIAN AND WOUND CARE. AT BEDSIDE.
--- NOTE | 2019-09-18 14:05 | NUR ---
DRESSING COMPLETED TO COCCYX WITH DAKIN MOISTENED KERLEX MOIST TO DRY WITH PAPER TAPE.
[2019-09-18 15:00] VITALS: BP 95/40
--- NOTE | 2019-09-18 15:32 | NUR ---
CALLED [facility] REGARDING GETTING AN AIR MATTRESS FOR THIS PT. SPOKE TO JEANMARIE WAS GIVEN CONFIRMATION NUMBER [phone].
--- NOTE | 2019-09-18 18:16 | NUR ---
REPOSITIONED INTO HIGH FOWLERS WITH PILLOW OFFLOADING BUTTOCK FOR TUBE FEED; PT TOLERATED WELL. REMAINING WITH HOB ELEVATED FOR ASPIRATIONS PRECAUTION.
[2019-09-18 19:10] VITALS: BP 119/72
--- NOTE | 2019-09-18 21:47 | NUR ---
PT MEDICATED ORDERS PROVIDE. PT MEDICATED FOR GENERALIZED DISCOMFORT. PT REPOSITIONED. AIR MATTRESS ARRIVED, WILL TRANSFER PT.
--- NOTE | 2019-09-19 00:50 | NUR ---
PT TOLERATED FEED WELL. HOB @45, PEG TUBE PLACEMENT AUSCULTATED, ZERO RESIDUAL, 1 CAN OF 1.5 JEVITY ADMINISTERED TO PEG TUBE VIA GRAVITY FEED. PT REPOSITIONED.
[2019-09-19 04:03] VITALS: BP 130/76
--- NOTE | 2019-09-19 04:33 | NUR ---
PT IS ON AIR MATTRESS RESTRING COMFORTABLY W/OUT S/O DISCOMFORT OR DISTRESS.
[2019-09-19 04:59] LABS: HEMATOCRIT 26.3 % (37.0-47.0); MEAN CELL VOLUME 99.6 fL CALC (80.0-100.0); MEAN CORPUSCULAR HGB 30.3 pG CALC (26.0-32.0); MEAN CORPUSCULAR HGB CONC 30.4 g/dL CAL (32.0-36.0); RED BLOOD COUNT 2.64 mill/uL (4.20-5.60); RED CELL DISTRI WIDTH 14.3 % (11.5-15.5)
[2019-09-19 05:20] LABS: ALBUMIN 2.7 g/dL (3.2-5.0); ALKALINE PHOSPHATASE 97 u/l (38-126); ANION GAP 8 (6-22 (CALC)); BILIRUBIN, TOTAL 0.5 mg/dL (0.0-1.4); BUN 27 mg/dL (8-23); BUN/CREATININE RATIO 35 (12-20 (CALC)); CARBON DIOXIDE 33 mmol/l (22-30); CHLORIDE 97 mmol/l (95-108); CREATININE 0.8 mg/dL (0.5-1.0); GFR > 60 ML/MIN (>=60 (CALC)); GFR FOR AFR.AMER. > 60 ML/MIN (>=60 (CALC)); POTASSIUM 3.5 mmol/l (3.5-5.1); SGOT/AST 36 u/l (9-36); SODIUM 134 mmol/l (137-146); TOTAL PROTEIN 5.9 g/dL (6.3-8.2)
--- NOTE | 2019-09-19 05:20 | NUR ---
PT HEARD MOANING SLIGHTLY, I ASKED THE PT IF SHE WAS IN PAIN, SHE RESPONDED "YEAH" I INFORMED THE PT THAT I WOULD GET HER SOMETHING FOR THE PAIN AND SHE STATED, "OKAY" W/A VERY LOW SLOW WORD. MYSELF AND AIDE ARE AT BEDSIDE AT THIS TIME. SHE HAS BEEN REPOSITIONED AND FEET FLOATED W/HEEL PROTECTORS. 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
--- NOTE | 2019-09-19 05:40 | NUR ---
HOB @45 PT MEDICATED W/30 WATER FLUSH AND FED 1.5CAL JEVITY 1XCAN AND FLUSHED W/120 WATER FLUSH. PT TOLERATED WELL. PT IS POSITIONED TOWARD L.SIDE AND HAS AIR MATTRESS.
--- NOTE | 2019-09-19 08:30 | NUR ---
PT IS RESTING IN BED WITH NO S/S OF DISTRESS NOTED. PT IS ALERT TO SELF. PT IS NON-VERBAL. O2 AT 2L VIA NC. AIR MATTRESS IN PLACE. DRESSING IN BUTTOCKS IS CDI. CLARK IS PATENT WITH ASHLEY URINE. CALL LIGHT IN REACH.
[2019-09-19 08:39] VITALS: BP 117/62
--- NOTE | 2019-09-19 10:50 | NUR ---
CHANGE PT DRESSING IN BUTTOCKS AND PT TOLERATED WELL. PT HAD A SMALL BM AND DANE CARE DONE. PT IN ROOM. CALL LIGHT IN REACH.
--- NOTE | 2019-09-19 12:26 | NUR ---
HEMA FROM [facility] HERE. REPORT GIVEN Re: PT. HEMA IN ROOM TO ASSESS PT AND SPEAK TO PT .
--- NOTE | 2019-09-19 13:10 | NUR ---
PEG TUBE IN ABD IN PLACE. CHANGE PT DRESSING IN PEG TUBE. PT TOLERATED WELL. NO S/S OF DISTRESS NOTED. CALL LIGHT IN REACH.
[2019-09-19 15:00] VITALS: BP 114/65
--- NOTE | 2019-09-19 16:06 | NUR ---
PT IS SLEEPING IN BED WITH NO S/S OF DISTRESS NOTED.
--- NOTE | 2019-09-19 20:20 | NUR ---
[facility] TRANSPORTED PT OFF MED SURG UNIT VIA STRETCHER W/02NC @2L FOR COMFORT. PT TOLERATED TRANSFER TO STRETCHER WELL AND IS IN STABLE CONDITION AT THIS TIME. NO S/O DISTRESS.
--- NOTE | 2019-09-20 08:31 | NUR ---
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 SPOKE TO BECKY WAS GIVEN CONFIRMATION NUMBER [phone].
== END 2019-09-19 20:05 | disposition hospice, inpatient (51) | DRG 570 ==
LOC: ED 13:50 → ED-I 16:33 → ED 16:42 → MS2 16:43 → ED-I 16:43 → MS2 18:38
PROVIDERS: Nurse Practitioner Family; ADMIT Internal Medicine; ATTEND Internal Medicine
PROC: 0JB70ZZ Excision of Back Subcutaneous Tissue and Fascia, Open Approach (ICD-10-PCS; principal; 2019-09-17)
DX: L89.153 Pressure ulcer of sacral region, stage 3 (principal); G93.41 Metabolic encephalopathy; E87.1 Hypo-osmolality and hyponatremia; G23.1 Progressive supranuclear ophthalmoplegia [Steele-Richardson-Olszewski]; N39.0 Urinary tract infection, site not specified; G20 Parkinson's disease; I10 Essential (primary) hypertension; E78.5 Hyperlipidemia, unspecified; E03.9 Hypothyroidism, unspecified; S80.822A Blister (nonthermal), left lower leg, initial encounter; B96.20 Unspecified Escherichia coli [E. coli] as the cause of diseases classified elsewhere; B96.5 Pseudomonas (aeruginosa) (mallei) (pseudomallei) as the cause of diseases classified elsewhere; Z51.5 Encounter for palliative care; Z66 Do not resuscitate; Z74.01 Bed confinement status; Z87.891 Personal history of nicotine dependence; Z96.0 Presence of urogenital implants; Z93.1 Gastrostomy status; Z87.440 Personal history of urinary (tract) infections; Z20.828 Contact with and (suspected) exposure to other viral communicable diseases
CPT/HCPCS: G0378